=== PATIENT | male | born 1960 | race Caucasian/White ===

== ENCOUNTER 2021-01-16 08:40 | Outpatient (CLI) | payer OTHER ==
[2021-01-16] MEDS ORDERED: HYDROcodone/Acetaminophen 7.5/325 mg Tablet PO PRN ×2 (16:24)
[2021-01-16] MEDS ORDERED: Acetaminophen 325 MG TAB PO PRN (16:24)
[2021-01-16] MEDS ORDERED: Ondansetron PF 4 MG/2 ML Vial IVP PRN (16:24)
[2021-01-16] MEDS ORDERED: Dextrose 5% in Water 1,000 ML IV PRN (16:29)
[2021-01-16] MEDS ORDERED: Dextrose 50% Abboject 50 ML SYRINGE SLOW IVP PRN (16:29)
[2021-01-16] MEDS ORDERED: HumaLOG 300 UNITS/3 ML VIAL SC PRN (16:29)
[2021-01-16] MEDS ORDERED: Famotidine 20 MG TAB PO SCH (21:00)
[2021-01-16] MEDS ORDERED: Atorvastatin Calcium 40 MG TAB PO SCH (21:00)
[2021-01-16] MEDS ORDERED: Cefaclor 250 MG CAP PO SCH (21:00)
[2021-01-17] MEDS ORDERED: Aspirin 81 mg Enteric Coated Tablet PO SCH (09:00)
== END 2021-01-16 08:41 | disposition home or self-care (01) ==
LOC: CSHWCC 08:40
PROVIDERS: ATTEND Nurse Practitioner Family
DX: T87.89 Other complications of amputation stump (principal); E11.621 Type 2 diabetes mellitus with foot ulcer; L97.422 Non-pressure chronic ulcer of left heel and midfoot with fat layer exposed; E11.40 Type 2 diabetes mellitus with diabetic neuropathy, unspecified; E11.65 Type 2 diabetes mellitus with hyperglycemia; E11.43 Type 2 diabetes mellitus with diabetic autonomic (poly)neuropathy; E11.69 Type 2 diabetes mellitus with other specified complication; M86.171 Other acute osteomyelitis, right ankle and foot; R60.0 Localized edema; I25.10 Atherosclerotic heart disease of native coronary artery without angina pectoris; I82.491 Acute embolism and thrombosis of other specified deep vein of right lower extremity; J44.9 Chronic obstructive pulmonary disease, unspecified; E66.01 Morbid (severe) obesity due to excess calories; Z89.411 Acquired absence of right great toe; Z89.432 Acquired absence of left foot
CPT/HCPCS: 11042; 93306; 93880; 99213; G0463

== ENCOUNTER 2021-01-16 10:13 | Inpatient (IN) | payer OTHER, SELFPAY ==
[2021-01-16 10:53] LABS: #Basophils 0.1 10x3/uL (0.0-0.2); #Monocytes 0.4 10x3/uL (0.0-1.1); #Neutrophils 3.3 10x3/uL (1.5-8.4); %Eosinophils 0.6 % (0.0-6.0); %Lymphocytes 22.4 % (18.0-47.0); %Monocytes 8.6 % (0.0-10.0); Hemoglobin 14.6 g/dL (13.5-17.5); Mean Corpuscular HGB CONC 32.7 g/dL (32.0-36.0); Mean Corpuscular Hemoglobin 31.1 pg (27.0-33.0); Mean Corpuscular Volume 95.1 fl (81.2-95.1); Mean Platelet Volume 9.3 fl (7.4-10.4); Platelet Count 233 10x3/uL (150-450); RBC Distribution Width 14.9 % (11.5-14.5); White Blood Cell (WBC) Count 4.9 10x3/uL (3.5-10.5)
[2021-01-16 11:10] LABS: ALT (SGPT) 10 U/L (8-55); AST (SGOT) 11 U/L (5-34); Albumin 4.2 g/dL (3.5-5.0); Alkaline Phosphatase 69 U/L (40-110); Anion Gap 17 mmol/L (10-20); BUN (Urea Nitrogen) 13 mg/dL (8.4-25.7); Bilirubin, Total 0.3 mg/dL (0.2-1.2); Calc. Creatinine Clearance 0 mL/min (70-130); Calcium 9.2 mg/dL (7.8-10.44); Carbon Dioxide 26 mmol/L (22-29); Chloride 100 mmol/L (98-107); Globulin 3.6 g/dL (2.4-3.5); Glucose 426 mg/dL (70-105); Potassium 4.6 mmol/L (3.5-5.1); Protein, Total 7.8 g/dL (6.0-8.3); Sodium 138 mmol/L (136-145)
[2021-01-16 16:53] VITALS: BMI 34.0
[2021-01-16] MEDS ORDERED: FLU VACC QS2021-22(6MOS UP)/PF 60 MCG/0.5 ML SYRINGE IM ONE (18:00)
[2021-01-16] MEDS ORDERED: Acetaminophen 325 MG TAB PO PRN (18:23)
[2021-01-16] MEDS ORDERED: Dextrose 5% in Water 1,000 ML IV PRN (18:27)
[2021-01-16] MEDS ORDERED: Ondansetron PF 4 MG/2 ML Vial IVP PRN (18:27)
[2021-01-16] MEDS ORDERED: Dextrose 50% Abboject 50 ML SYRINGE SLOW IVP PRN (18:27)
[2021-01-16] MEDS: Atorvastatin Calcium 40 MG TAB PO SCH (20:27)
[2021-01-16] MEDS: HYDROcodone/Acetaminophen 7.5/325 mg Tablet PO PRN (20:27)
[2021-01-16] MEDS: Famotidine 20 MG TAB PO SCH (20:27)
[2021-01-16] MEDS ORDERED: Cefuroxime Axetil 250 MG TAB PO SCH (21:00)
[2021-01-16] MEDS ORDERED: Apixaban 5 MG TAB PO SCH (21:15)
[2021-01-16] MEDS: HumaLOG 300 UNITS/3 ML VIAL SC PRN (21:42)
[2021-01-17] MEDS: HYDROcodone/Acetaminophen 7.5/325 mg Tablet PO PRN ×4 (00:06→23:04)
[2021-01-17 06:25] LABS: #Eosinphils 0.1 10x3/uL (0.0-0.5); #Monocytes 0.6 10x3/uL (0.0-1.1); #Neutrophils 2.7 10x3/uL (1.5-8.4); %Basophils 0.8 % (0.0-2.0); %Eosinophils 1.6 % (0.0-6.0); %Monocytes 11.6 % (0.0-10.0); %Neutrophils 53.6 % (40.0-75.0); Hemoglobin 14.7 g/dL (13.5-17.5); Mean Corpuscular HGB CONC 32.5 g/dL (32.0-36.0); Mean Corpuscular Hemoglobin 31.6 pg (27.0-33.0); Mean Corpuscular Volume 97.2 fl (81.2-95.1); Platelet Count 222 10x3/uL (150-450); RBC Distribution Width 15.1 % (11.5-14.5); Red Blood Cell (RBC) Count 4.65 10x6/uL (4.32-5.72)
[2021-01-17 07:00] LABS: ALT (SGPT) 8 U/L (8-55); AST (SGOT) 11 U/L (5-34); Albumin 3.8 g/dL (3.5-5.0); Alkaline Phosphatase 66 U/L (40-110); Anion Gap 14 mmol/L (10-20); BUN (Urea Nitrogen) 12 mg/dL (8.4-25.7); Bilirubin, Total 0.6 mg/dL (0.2-1.2); Calc. Creatinine Clearance 176 mL/min (70-130); Calcium 8.8 mg/dL (7.8-10.44); Carbon Dioxide 25 mmol/L (22-29); Cardiac Risk 6.6 (Less than 4.5); Chloride 103 mmol/L (98-107); Cholesterol 178 mg/dl (< 200 Desired); Globulin 3.2 g/dL (2.4-3.5); Glucose 171 mg/dL (70-105); HDL Cholesterol 27 mg/dL (>60 Neg Risk); LDL Cholesterol, Calculated 85 mg/dL; Potassium 4.2 mmol/L (3.5-5.1); Sodium 138 mmol/L (136-145); Triglycerides 330 mg/dL (Less than 150)
[2021-01-17] MEDS: Famotidine 20 MG TAB PO SCH ×2 (08:45→20:17)
[2021-01-17] MEDS: Aspirin 81 mg Enteric Coated Tablet PO SCH (08:45)
[2021-01-17] MEDS: Apixaban 5 MG TAB PO SCH ×2 (08:45→20:17)
[2021-01-17] MEDS: Cefuroxime Axetil 250 MG TAB PO SCH ×2 (08:45→16:40)
[2021-01-17] MEDS: HumaLOG 300 UNITS/3 ML VIAL SC PRN ×2 (13:00→21:31)
[2021-01-17] MEDS: Atorvastatin Calcium 40 MG TAB PO SCH (20:17)
[2021-01-18] MEDS: HYDROcodone/Acetaminophen 7.5/325 mg Tablet PO PRN ×2 (05:32→09:50)
[2021-01-18] MEDS: HumaLOG 300 UNITS/3 ML VIAL SC PRN (05:33)
[2021-01-18] MEDS: Famotidine 20 MG TAB PO SCH (08:44)
[2021-01-18] MEDS: Apixaban 5 MG TAB PO SCH (08:44)
[2021-01-18] MEDS: Cefuroxime Axetil 250 MG TAB PO SCH (08:44)
[2021-01-18] MEDS: Aspirin 81 mg Enteric Coated Tablet PO SCH (08:44)
[2021-01-18 08:46] VITALS: BP 136/87; TEMP 98.6
== END 2021-01-18 10:39 | disposition home or self-care (01) | DRG 69 ==
LOC: CSHERS 10:13 → CSHTELE 15:50
PROVIDERS: ADMIT Internal Medicine; ATTEND Internal Medicine
DX: G45.9 Transient cerebral ischemic attack, unspecified (principal); J44.9 Chronic obstructive pulmonary disease, unspecified; I10 Essential (primary) hypertension; E78.5 Hyperlipidemia, unspecified; F17.210 Nicotine dependence, cigarettes, uncomplicated; E11.9 Type 2 diabetes mellitus without complications; I73.9 Peripheral vascular disease, unspecified; Z86.718 Personal history of other venous thrombosis and embolism; Z79.01 Long term (current) use of anticoagulants; Z89.421 Acquired absence of other right toe(s)
CPT/HCPCS: 36415; 36416; 70450; 70551; 71045; 72141; 80053; 80061; 82553; 84484; 85025; 93005; 93306; J1815

== ENCOUNTER 2021-01-23 08:11 | Outpatient (CLI) | payer OTHER | END 2021-01-23 08:12 | disposition home or self-care (01) | LOC: CSHWCC 08:11 | PROVIDERS: ATTEND Nurse Practitioner Family | DX: T87.89 Other complications of amputation stump (principal); E11.621 Type 2 diabetes mellitus with foot ulcer; L97.422 Non-pressure chronic ulcer of left heel and midfoot with fat layer exposed; E11.40 Type 2 diabetes mellitus with diabetic neuropathy, unspecified; E11.65 Type 2 diabetes mellitus with hyperglycemia; E11.43 Type 2 diabetes mellitus with diabetic autonomic (poly)neuropathy; E11.69 Type 2 diabetes mellitus with other specified complication; I25.10 Atherosclerotic heart disease of native coronary artery without angina pectoris; I82.491 Acute embolism and thrombosis of other specified deep vein of right lower extremity; M86.171 Other acute osteomyelitis, right ankle and foot; J44.9 Chronic obstructive pulmonary disease, unspecified; R60.0 Localized edema; E66.01 Morbid (severe) obesity due to excess calories; Z89.411 Acquired absence of right great toe; Z89.432 Acquired absence of left foot | CPT/HCPCS: 11042; 99213; G0463 ==

== ENCOUNTER 2021-01-30 08:25 | Outpatient (CLI) | payer OTHER | END 2021-01-30 08:26 | disposition home or self-care (01) | LOC: CSHWCC 08:25 | PROVIDERS: ATTEND Nurse Practitioner Family | DX: T87.89 Other complications of amputation stump (principal); E11.621 Type 2 diabetes mellitus with foot ulcer; L97.422 Non-pressure chronic ulcer of left heel and midfoot with fat layer exposed; E11.40 Type 2 diabetes mellitus with diabetic neuropathy, unspecified; E11.65 Type 2 diabetes mellitus with hyperglycemia; E66.01 Morbid (severe) obesity due to excess calories; G90.09 Other idiopathic peripheral autonomic neuropathy; I10 Essential (primary) hypertension; I25.10 Atherosclerotic heart disease of native coronary artery without angina pectoris; I82.491 Acute embolism and thrombosis of other specified deep vein of right lower extremity; J44.9 Chronic obstructive pulmonary disease, unspecified; M86.171 Other acute osteomyelitis, right ankle and foot; Z89.411 Acquired absence of right great toe; Z89.432 Acquired absence of left foot ==

== ENCOUNTER 2021-02-06 08:43 | Outpatient (CLI) | payer OTHER | END 2021-02-06 08:44 | disposition home or self-care (01) | LOC: CSHWCC 08:43 | PROVIDERS: ATTEND Nurse Practitioner Family | DX: T87.89 Other complications of amputation stump (principal); E11.621 Type 2 diabetes mellitus with foot ulcer; L97.422 Non-pressure chronic ulcer of left heel and midfoot with fat layer exposed; E11.40 Type 2 diabetes mellitus with diabetic neuropathy, unspecified; E11.65 Type 2 diabetes mellitus with hyperglycemia; E11.43 Type 2 diabetes mellitus with diabetic autonomic (poly)neuropathy; E11.69 Type 2 diabetes mellitus with other specified complication; M86.171 Other acute osteomyelitis, right ankle and foot; I25.10 Atherosclerotic heart disease of native coronary artery without angina pectoris; R60.0 Localized edema; I82.491 Acute embolism and thrombosis of other specified deep vein of right lower extremity; J44.9 Chronic obstructive pulmonary disease, unspecified; I10 Essential (primary) hypertension; E66.01 Morbid (severe) obesity due to excess calories; Z89.411 Acquired absence of right great toe; Z89.432 Acquired absence of left foot | CPT/HCPCS: 11042; 99213; G0463 ==

== ENCOUNTER 2021-02-13 08:22 | Outpatient (CLI) | payer OTHER | END 2021-02-13 08:23 | disposition home or self-care (01) | LOC: CSHWCC 08:22 | PROVIDERS: ATTEND Nurse Practitioner Family | DX: T87.89 Other complications of amputation stump (principal); E11.621 Type 2 diabetes mellitus with foot ulcer; R60.0 Localized edema; E11.40 Type 2 diabetes mellitus with diabetic neuropathy, unspecified; E11.65 Type 2 diabetes mellitus with hyperglycemia; E66.01 Morbid (severe) obesity due to excess calories; G90.09 Other idiopathic peripheral autonomic neuropathy; I10 Essential (primary) hypertension; I25.10 Atherosclerotic heart disease of native coronary artery without angina pectoris; I82.491 Acute embolism and thrombosis of other specified deep vein of right lower extremity; J44.9 Chronic obstructive pulmonary disease, unspecified; M86.171 Other acute osteomyelitis, right ankle and foot; Z89.411 Acquired absence of right great toe; Z89.432 Acquired absence of left foot | CPT/HCPCS: 11042; 99213; G0463 ==

== ENCOUNTER 2021-02-27 08:42 | Outpatient (CLI) | payer OTHER | END 2021-02-27 08:43 | disposition home or self-care (01) | LOC: CSHWCC 08:42 | PROVIDERS: ATTEND Nurse Practitioner Family | DX: T87.89 Other complications of amputation stump (principal); E11.621 Type 2 diabetes mellitus with foot ulcer; E11.40 Type 2 diabetes mellitus with diabetic neuropathy, unspecified; E11.65 Type 2 diabetes mellitus with hyperglycemia; L97.509 Non-pressure chronic ulcer of other part of unspecified foot with unspecified severity; E66.01 Morbid (severe) obesity due to excess calories; G90.09 Other idiopathic peripheral autonomic neuropathy; I10 Essential (primary) hypertension; I25.10 Atherosclerotic heart disease of native coronary artery without angina pectoris; I82.491 Acute embolism and thrombosis of other specified deep vein of right lower extremity; J44.9 Chronic obstructive pulmonary disease, unspecified; M86.171 Other acute osteomyelitis, right ankle and foot; R60.0 Localized edema; Z89.411 Acquired absence of right great toe; Z89.432 Acquired absence of left foot | CPT/HCPCS: 99213; G0463 ==

== ENCOUNTER 2021-03-13 08:32 | Outpatient (CLI) | payer OTHER | END 2021-03-13 08:33 | disposition home or self-care (01) | LOC: CSHWCC 08:32 | PROVIDERS: ATTEND Nurse Practitioner Family | DX: T87.89 Other complications of amputation stump (principal); E11.621 Type 2 diabetes mellitus with foot ulcer; L97.509 Non-pressure chronic ulcer of other part of unspecified foot with unspecified severity; R60.0 Localized edema; E11.40 Type 2 diabetes mellitus with diabetic neuropathy, unspecified; E11.65 Type 2 diabetes mellitus with hyperglycemia; E66.01 Morbid (severe) obesity due to excess calories; G90.01 Carotid sinus syncope; I10 Essential (primary) hypertension; I25.10 Atherosclerotic heart disease of native coronary artery without angina pectoris; I82.491 Acute embolism and thrombosis of other specified deep vein of right lower extremity; J44.9 Chronic obstructive pulmonary disease, unspecified; M86.171 Other acute osteomyelitis, right ankle and foot; Z89.411 Acquired absence of right great toe; Z89.432 Acquired absence of left foot ==

== ENCOUNTER 2021-04-03 08:31 | Outpatient (CLI) | payer OTHER | END 2021-04-03 08:32 | disposition home or self-care (01) | LOC: CSHWCC 08:31 | PROVIDERS: ATTEND Nurse Practitioner Family | DX: T87.89 Other complications of amputation stump (principal); R60.0 Localized edema; E11.621 Type 2 diabetes mellitus with foot ulcer; L97.509 Non-pressure chronic ulcer of other part of unspecified foot with unspecified severity; E11.40 Type 2 diabetes mellitus with diabetic neuropathy, unspecified; E11.65 Type 2 diabetes mellitus with hyperglycemia; E66.01 Morbid (severe) obesity due to excess calories; G90.09 Other idiopathic peripheral autonomic neuropathy; I10 Essential (primary) hypertension; I25.10 Atherosclerotic heart disease of native coronary artery without angina pectoris; I82.491 Acute embolism and thrombosis of other specified deep vein of right lower extremity; J44.9 Chronic obstructive pulmonary disease, unspecified; M86.171 Other acute osteomyelitis, right ankle and foot; Z89.411 Acquired absence of right great toe; Z89.432 Acquired absence of left foot ==

== ENCOUNTER 2021-05-08 10:16 | Outpatient (CLI) | payer OTHER | END 2021-05-08 10:17 | disposition home or self-care (01) | LOC: CSHWCC 10:16 | PROVIDERS: ATTEND Nurse Practitioner Family | DX: T87.89 Other complications of amputation stump (principal); E11.621 Type 2 diabetes mellitus with foot ulcer; L97.509 Non-pressure chronic ulcer of other part of unspecified foot with unspecified severity; E11.40 Type 2 diabetes mellitus with diabetic neuropathy, unspecified; E11.65 Type 2 diabetes mellitus with hyperglycemia; E11.43 Type 2 diabetes mellitus with diabetic autonomic (poly)neuropathy; E11.69 Type 2 diabetes mellitus with other specified complication; M86.171 Other acute osteomyelitis, right ankle and foot; I25.10 Atherosclerotic heart disease of native coronary artery without angina pectoris; I82.491 Acute embolism and thrombosis of other specified deep vein of right lower extremity; I10 Essential (primary) hypertension; J44.9 Chronic obstructive pulmonary disease, unspecified; E66.01 Morbid (severe) obesity due to excess calories; Z89.411 Acquired absence of right great toe; Z89.432 Acquired absence of left foot ==

== ENCOUNTER 2021-05-29 08:21 | Outpatient (CLI) | payer SELFPAY | END 2021-05-29 08:22 | disposition home or self-care (01) | LOC: CSHWCC 08:21 | PROVIDERS: ATTEND Nurse Practitioner Family | DX: T87.89 Other complications of amputation stump (principal); R60.0 Localized edema | CPT/HCPCS: 99213; G0463 ==

== ENCOUNTER 2022-01-02 19:32 | Inpatient (IN) | payer SELFPAY ==
[2022-01-02 20:10] LABS: #Basophils 0.1 10x3/uL (0.0-0.2); #Eosinphils 0.1 10x3/uL (0.0-0.5); #Monocytes 0.6 10x3/uL (0.0-1.1); #Neutrophils 3.9 10x3/uL (1.5-8.4); %Basophils 0.7 % (0.0-2.0); %Eosinophils 0.7 % (0.0-6.0); %Lymphocytes 32.8 % (18.0-47.0); %Monocytes 8.3 % (0.0-10.0); %Neutrophils 57.1 % (40.0-75.0); Hemoglobin 12.4 g/dL (13.5-17.5); Mean Corpuscular Hemoglobin 32.9 pg (27.0-33.0); Mean Corpuscular Volume 93.9 fl (81.2-95.1); Mean Platelet Volume 9.5 fl (7.4-10.4); Platelet Count 218 10x3/uL (150-450); Red Blood Cell (RBC) Count 3.77 10x6/uL (4.32-5.72); White Blood Cell (WBC) Count 6.8 10x3/uL (3.5-10.5)
[2022-01-02] MEDS ORDERED: Diltiazem 125 MG/25 ML ONE (20:14)
[2022-01-02 20:24] LABS: ALT (SGPT) 7 U/L (8-55); AST (SGOT) 10 U/L (5-34); Alkaline Phosphatase 45 U/L (40-110); Anion Gap 15 mmol/L (10-20); BUN (Urea Nitrogen) 12 mg/dL (8.4-25.7); Bilirubin, Total 0.2 mg/dL (0.2-1.2); Calc. Creatinine Clearance 0 mL/min (70-130); Calcium 6.5 mg/dL (7.8-10.44); Carbon Dioxide 14 mmol/L (22-29); Chloride 109 mmol/L (98-107); Estimated GFR 108; Globulin 1.9 g/dL (2.4-3.5); Glucose 123 mg/dL (70-105); Protein, Total 4.9 g/dL (6.0-8.3); Sodium 135 mmol/L (136-145)
[2022-01-02 20:30] LABS: Potassium 2.9 mmol/L (3.5-5.1)
[2022-01-02] MEDS ORDERED: Potassium Chloride 20 MEQ TAB ONE (20:51)
[2022-01-03 01:07] LABS: Troponin I Less than 0.010 ng/mL (< 0.028)
[2022-01-03 01:21] LABS: Anion Gap 17 mmol/L (10-20); BUN (Urea Nitrogen) 12 mg/dL (8.4-25.7); Calc. Creatinine Clearance 0 mL/min (70-130); Carbon Dioxide 19 mmol/L (22-29); Chloride 104 mmol/L (98-107); Estimated GFR 102; Glucose 148 mg/dL (70-105); Potassium 3.9 mmol/L (3.5-5.1); Sodium 136 mmol/L (136-145)
[2022-01-03 01:25] VITALS: BMI 30.9
[2022-01-03 01:33] LABS: Calcium 8.4 mg/dL (7.8-10.44)
[2022-01-03] MEDS ORDERED: Diltiazem 125 MG in Sodium Chloride 0.9% 100 ML IVPB SCH (02:00)
[2022-01-03] MEDS: Acetaminophen 325 MG TAB PO PRN ×2 (02:40→08:41)
[2022-01-03 04:39] LABS: #Eosinphils 0.1 10x3/uL (0.0-0.5); #Monocytes 0.4 10x3/uL (0.0-1.1); #Neutrophils 2.2 10x3/uL (1.5-8.4); %Basophils 0.9 % (0.0-2.0); %Eosinophils 1.2 % (0.0-6.0); %Monocytes 10.2 % (0.0-10.0); %Neutrophils 50.2 % (40.0-75.0); Hemoglobin 13.2 g/dL (13.5-17.5); Mean Corpuscular HGB CONC 35.3 g/dL (32.0-36.0); Mean Corpuscular Hemoglobin 33.2 pg (27.0-33.0); Mean Platelet Volume 10.2 fl (7.4-10.4); Platelet Count 203 10x3/uL (150-450); RBC Distribution Width 12.8 % (11.5-14.5); Red Blood Cell (RBC) Count 3.98 10x6/uL (4.32-5.72); White Blood Cell (WBC) Count 4.3 10x3/uL (3.5-10.5)
[2022-01-03 04:43] LABS: Troponin I Less than 0.010 ng/mL (< 0.028)
[2022-01-03] MEDS: Mometasone/Formoterol 60 PUFF AER INH SCH ×2 (07:08→18:35)
[2022-01-03] MEDS ORDERED: Apixaban 5 MG TAB PO SCH (09:45)
[2022-01-03] MEDS ORDERED: Dextrose 5% in Water 1,000 ML IV PRN (09:55)
[2022-01-03] MEDS ORDERED: Dextrose 50% Abboject 50 ML SYRINGE SLOW IVP PRN (09:55)
[2022-01-03] MEDS: HumaLOG 300 UNITS/3 ML VIAL SC PRN ×2 (12:21→17:32)
[2022-01-03] MEDS: Metoprolol Tartrate 50 MG TAB PO SCH ×2 (14:29→20:43)
[2022-01-03] MEDS: Apixaban 5 MG TAB PO SCH (20:43)
[2022-01-04] MEDS: HumaLOG 300 UNITS/3 ML VIAL SC PRN (04:52)
[2022-01-04 05:37] LABS: Troponin I Less than 0.010 ng/mL (< 0.028)
[2022-01-04] MEDS: Mometasone/Formoterol 60 PUFF AER INH SCH (07:00)
[2022-01-04] MEDS: Apixaban 5 MG TAB PO SCH (08:07)
[2022-01-04] MEDS: Metoprolol Tartrate 50 MG TAB PO SCH (08:07)
[2022-01-04] MEDS: Acetaminophen 325 MG TAB PO PRN (08:08)
[2022-01-04 08:19] VITALS: BP 148/82; TEMP 97.9
[2022-01-04] MEDS ORDERED: Empagliflozin 25 MG TAB PO SCH (09:00)
[2022-01-04] MEDS ORDERED: Lisinopril 20 MG TAB PO SCH (09:00)
== END 2022-01-04 11:30 | disposition home or self-care (01) | DRG 309 ==
LOC: CSHERS 19:32 → CSHTELE 01-03 01:01
PROVIDERS: ADMIT Family Medicine; ATTEND Family Medicine
DX: I48.91 Unspecified atrial fibrillation (principal); E87.29 Other acidosis; E87.6 Hypokalemia; I10 Essential (primary) hypertension; E78.5 Hyperlipidemia, unspecified; J44.9 Chronic obstructive pulmonary disease, unspecified; F17.210 Nicotine dependence, cigarettes, uncomplicated; E11.69 Type 2 diabetes mellitus with other specified complication; F19.90 Other psychoactive substance use, unspecified, uncomplicated; I48.92 Unspecified atrial flutter; Z20.822 Contact with and (suspected) exposure to COVID-19; Z79.01 Long term (current) use of anticoagulants; Z79.899 Other long term (current) drug therapy; Z86.711 Personal history of pulmonary embolism; Z86.718 Personal history of other venous thrombosis and embolism; Z89.411 Acquired absence of right great toe
CPT/HCPCS: 36415; 36416; 71045; 80048; 80053; 82550; 83735; 84443; 84484; 85025; 93005; 96374; 96376; J1815; J3490; U0003; U0005

== ENCOUNTER 2022-05-29 15:45 | Inpatient (IN) | payer SELFPAY ==
[2022-05-29] MEDS ORDERED: Diltiazem 125 MG/25 ML ONE (16:20)
[2022-05-29] MEDS ORDERED: Ondansetron ODT 4 MG TAB PO PRN ×2 (16:37→16:41)
[2022-05-29] MEDS ORDERED: Ondansetron PF 4 MG/2 ML Vial IVP PRN (16:37)
[2022-05-29] MEDS ORDERED: Lorazepam 2 MG/ML VIAL IM PRN (16:41)
[2022-05-29] MEDS ORDERED: Lorazepam 1 MG TAB PO PRN (16:41)
[2022-05-29] MEDS ORDERED: HumaLOG 300 UNITS/3 ML VIAL SC PRN ×2 (16:44)
[2022-05-29] MEDS ORDERED: Dextrose 50% Abboject 50 ML SYRINGE SLOW IVP PRN (16:44)
[2022-05-29] MEDS ORDERED: Dextrose 5% in Water 1,000 ML IV PRN (16:44)
[2022-05-29] MEDS ORDERED: Electrolyte Replacement Protocol 1 EACH FS SCH (16:45)
[2022-05-29] MEDS ORDERED: Diltiazem 125 MG in Sodium Chloride 0.9% 100 ML IVPB SCH (17:15)
[2022-05-29] MEDS: Lorazepam 1 MG TAB PO SCH ×2 (17:29→23:27)
[2022-05-29] MEDS ORDERED: Nicotine 14 MG PATCH TD SCH (17:30)
[2022-05-29] MEDS: Thiamine HCl 200 MG/2 ML VIAL SLOW IVP SCH (17:33)
[2022-05-29 17:50] LABS: Magnesium 1.7 mg/dL (1.6-2.6)
[2022-05-29 18:11] LABS: Anion Gap 16 mmol/L (10-20); BUN (Urea Nitrogen) 8 mg/dL (8.4-25.7); Calc. Creatinine Clearance 0 mL/min (70-130); Calcium 8.6 mg/dL (7.8-10.44); Carbon Dioxide 18 mmol/L (22-29); Chloride 104 mmol/L (98-107); Estimated GFR 102; Glucose 162 mg/dL (70-105); Potassium 4.4 mmol/L (3.5-5.1); Sodium 134 mmol/L (136-145)
[2022-05-29 18:26] VITALS: BMI 33.1
[2022-05-29] MEDS ORDERED: FLU VACC QS2022-23(6MOS UP)/PF 60 MCG/0.5 ML SYRINGE IM ONE (19:00)
[2022-05-29] MEDS ORDERED: Magnesium 2 GM/50 ML(in water) 2 GM in Premix Bag 1 BAG IVPB SCH (19:30)
[2022-05-29] MEDS: Apixaban 5 MG TAB PO SCH (20:39)
[2022-05-29] MEDS: Metoprolol Tartrate 50 MG TAB PO SCH (20:39)
[2022-05-29] MEDS: Acetaminophen 325 MG TAB PO PRN (23:30)
[2022-05-30] MEDS: Lorazepam 1 MG TAB PO SCH ×2 (05:16→10:13)
[2022-05-30 06:01] LABS: #Eosinphils 0.1 10x3/uL (0.0-0.5); #Monocytes 0.7 10x3/uL (0.0-1.1); #Neutrophils 2.9 10x3/uL (1.5-8.4); %Basophils 0.7 % (0.0-2.0); %Eosinophils 2.2 % (0.0-6.0); %Lymphocytes 30.4 % (18.0-47.0); %Monocytes 12.1 % (0.0-10.0); %Neutrophils 53.9 % (40.0-75.0); Hemoglobin 12.5 g/dL (13.5-17.5); Mean Corpuscular HGB CONC 33.2 g/dL (32.0-36.0); Mean Corpuscular Hemoglobin 32.3 pg (27.0-33.0); Mean Corpuscular Volume 97.2 fl (81.2-95.1); Mean Platelet Volume 10.3 fl (7.4-10.4); Platelet Count 228 10x3/uL (150-450); RBC Distribution Width 13.2 % (11.5-14.5); Red Blood Cell (RBC) Count 3.87 10x6/uL (4.32-5.72); White Blood Cell (WBC) Count 5.4 10x3/uL (3.5-10.5)
[2022-05-30 06:07] LABS: Anion Gap 16 mmol/L (10-20); BUN (Urea Nitrogen) 7 mg/dL (8.4-25.7); Calc. Creatinine Clearance 167 mL/min (70-130); Calcium 8.3 mg/dL (7.8-10.44); Carbon Dioxide 21 mmol/L (22-29); Chloride 100 mmol/L (98-107); Estimated GFR 101; Glucose 167 mg/dL (70-105); Magnesium 1.9 mg/dL (1.6-2.6); Potassium 3.7 mmol/L (3.5-5.1); Sodium 133 mmol/L (136-145)
[2022-05-30] MEDS ORDERED: Nicotine 14 MG PATCH TD PRN (07:51)
[2022-05-30] MEDS ORDERED: Magnesium 2 GM/50 ML(in water) 2 GM in Premix Bag 1 BAG IVPB SCH (09:00)
[2022-05-30] MEDS: Folic Acid 1 MG TAB PO SCH (10:11)
[2022-05-30] MEDS: Apixaban 5 MG TAB PO SCH (10:11)
[2022-05-30] MEDS: Metoprolol Tartrate 50 MG TAB PO SCH ×2 (10:12→20:56)
[2022-05-30] MEDS: Multivit, Therapeutic 1 TAB PO SCH (10:13)
[2022-05-30] MEDS ORDERED: Diltiazem 125 MG in Sodium Chloride 0.9% 100 ML IVPB SCH (10:15)
[2022-05-30] MEDS: Ampicillin/Sulbactam 3 GM in Sodium Chloride 0.9% 100 ML IVPB SCH ×3 (11:18→20:56)
[2022-05-30 14:10] LABS: CKMB 2.6 ng/mL (0-6.6)
[2022-05-30] MEDS ORDERED: Lorazepam 1 MG TAB PO PRN (16:41)
[2022-05-30] MEDS: Thiamine HCl 200 MG/2 ML VIAL SLOW IVP SCH (17:54)
[2022-05-30] MEDS: Enoxaparin 120 MG/0.8 ML SYRINGE SC SCH (20:56)
[2022-05-30] MEDS: Chlorhexidine Gluconate 15 ML UDCUP SSP SCH (20:56)
[2022-05-30] MEDS: Cyanocobalamin (Vitamin B-12) 1,000 MCG TAB PO SCH (20:57)
[2022-05-31] MEDS: Ampicillin/Sulbactam 3 GM in Sodium Chloride 0.9% 100 ML IVPB SCH ×4 (03:32→22:16)
[2022-05-31 04:34] LABS: #Eosinphils 0.1 10x3/uL (0.0-0.5); #Monocytes 0.5 10x3/uL (0.0-1.1); #Neutrophils 3.5 10x3/uL (1.5-8.4); %Basophils 0.6 % (0.0-2.0); %Eosinophils 1.7 % (0.0-6.0); %Lymphocytes 23.9 % (18.0-47.0); %Monocytes 8.7 % (0.0-10.0); %Neutrophils 64.7 % (40.0-75.0); Hemoglobin 12.7 g/dL (13.5-17.5); Mean Corpuscular HGB CONC 33.8 g/dL (32.0-36.0); Mean Corpuscular Hemoglobin 32.3 pg (27.0-33.0); Mean Corpuscular Volume 95.7 fl (81.2-95.1); Mean Platelet Volume 10.3 fl (7.4-10.4); Platelet Count 221 10x3/uL (150-450); RBC Distribution Width 12.9 % (11.5-14.5); Red Blood Cell (RBC) Count 3.93 10x6/uL (4.32-5.72); White Blood Cell (WBC) Count 5.4 10x3/uL (3.5-10.5)
[2022-05-31 04:50] LABS: Anion Gap 13 mmol/L (10-20); BUN (Urea Nitrogen) 7 mg/dL (8.4-25.7); Calc. Creatinine Clearance 185 mL/min (70-130); Calcium 8.4 mg/dL (7.8-10.44); Carbon Dioxide 22 mmol/L (22-29); Chloride 102 mmol/L (98-107); Estimated GFR 105; Glucose 158 mg/dL (70-105); Magnesium 1.8 mg/dL (1.6-2.6); Potassium 4.2 mmol/L (3.5-5.1); Sodium 133 mmol/L (136-145)
[2022-05-31] MEDS ORDERED: Magnesium 2 GM/50 ML(in water) 2 GM in Premix Bag 1 BAG IVPB SCH (08:00)
[2022-05-31] MEDS ORDERED: Multivit, Therapeutic 1 TAB PO SCH (09:00)
[2022-05-31] MEDS: Enoxaparin 120 MG/0.8 ML SYRINGE SC SCH ×2 (10:09→22:16)
[2022-05-31] MEDS: Multivit, Therapeutic 1 TAB PO SCH (10:09)
[2022-05-31] MEDS: Folic Acid 1 MG TAB PO SCH (10:09)
[2022-05-31] MEDS: Metoprolol Tartrate 50 MG TAB PO SCH ×3 (10:40→22:15)
[2022-05-31] MEDS: Chlorhexidine Gluconate 15 ML UDCUP SSP SCH ×2 (10:40→22:16)
[2022-05-31] MEDS ORDERED: Losartan 25 MG TAB PO SCH (11:00)
[2022-05-31] MEDS: Thiamine HCl 200 MG/2 ML VIAL SLOW IVP SCH (15:37)
[2022-05-31] MEDS ORDERED: Lorazepam 1 MG TAB PO PRN (16:41)
[2022-05-31] MEDS ORDERED: Lorazepam 0.5 MG TAB PO SCH (16:45)
[2022-05-31 17:20] LABS: SARS-CoV-2 NAA Rapid Test Not Detected (NotDetected)
[2022-05-31] MEDS ORDERED: Ampicillin/Sulbactam 3 GM VIAL ONE ×2 (22:10)
[2022-05-31] MEDS: Cyanocobalamin (Vitamin B-12) 1,000 MCG TAB PO SCH (22:15)
[2022-06-01] MEDS: Ampicillin/Sulbactam 3 GM in Sodium Chloride 0.9% 100 ML IVPB SCH ×2 (04:13→13:07)
[2022-06-01] MEDS: Acetaminophen 325 MG TAB PO PRN (04:24)
[2022-06-01 04:47] LABS: #Eosinphils 0.1 10x3/uL (0.0-0.5); #Monocytes 0.5 10x3/uL (0.0-1.1); #Neutrophils 3.6 10x3/uL (1.5-8.4); %Basophils 0.6 % (0.0-2.0); %Eosinophils 1.5 % (0.0-6.0); %Lymphocytes 21.6 % (18.0-47.0); %Monocytes 8.6 % (0.0-10.0); Hemoglobin 12.6 g/dL (13.5-17.5); Mean Corpuscular HGB CONC 34.2 g/dL (32.0-36.0); Mean Corpuscular Volume 96.3 fl (81.2-95.1); Mean Platelet Volume 10.4 fl (7.4-10.4); Platelet Count 221 10x3/uL (150-450); Red Blood Cell (RBC) Count 3.82 10x6/uL (4.32-5.72); White Blood Cell (WBC) Count 5.4 10x3/uL (3.5-10.5)
[2022-06-01 05:02] LABS: Anion Gap 14 mmol/L (10-20); BUN (Urea Nitrogen) 7 mg/dL (8.4-25.7); Calc. Creatinine Clearance 176 mL/min (70-130); Calcium 8.6 mg/dL (7.8-10.44); Carbon Dioxide 23 mmol/L (22-29); Chloride 101 mmol/L (98-107); Estimated GFR 103; Glucose 154 mg/dL (70-105); Potassium 3.9 mmol/L (3.5-5.1); Sodium 134 mmol/L (136-145)
[2022-06-01] MEDS ORDERED: Communication Order-Pharmacy FS SCH (08:00)
[2022-06-01] MEDS ORDERED: Diazepam 5 MG TAB PO SCH (08:00)
[2022-06-01] MEDS ORDERED: Nitroglycerin 50 MG/250 ML BOT 250 ML ONE (08:53)
[2022-06-01] MEDS ORDERED: Lidocaine 1% MPF 2 ML VIAL ONE (08:53)
[2022-06-01] MEDS ORDERED: Lidocaine 1% (PF) 30 ML VIAL ONE (08:54)
[2022-06-01] MEDS ORDERED: Heparin 10,000 UNITS/ 10 ML VIAL ONE (08:57)
[2022-06-01] MEDS ORDERED: Losartan 25 MG TAB PO SCH (09:00)
[2022-06-01] MEDS ORDERED: Adenosine 6 MG/2 ML VIAL ONE (09:02)
[2022-06-01] MEDS ORDERED: Verapamil 5 MG/2 ML VIAL ONE (09:02)
[2022-06-01] MEDS ORDERED: Bivalirudin 250 MG VIAL ONE (09:02)
[2022-06-01] MEDS ORDERED: Sodium Chloride 0.9% 1,000 ML ONE (09:03)
[2022-06-01] MEDS ORDERED: Fentanyl 100 MCG/2 ML VIAL ONE (09:18)
[2022-06-01] MEDS ORDERED: Midazolam HCl 2 mg/2 ml Vial ONE (09:18)
[2022-06-01] MEDS ORDERED: TICAGRELOR 90 MG TABLET ONE (09:50)
[2022-06-01] MEDS ORDERED: Iopamidol 300 61% 100 ML VIAL FS ONE (09:51)
[2022-06-01] MEDS ORDERED: Sodium Chloride 0.9% 1,000 ML IV SCH (10:45)
[2022-06-01] MEDS: Metoprolol Tartrate 50 MG TAB PO SCH ×2 (13:02→13:03)
[2022-06-01 16:16] VITALS: BP 159/92; TEMP 97.8
[2022-06-01] MEDS ORDERED: Lorazepam 0.5 MG TAB PO PRN (16:41)
[2022-06-01] MEDS ORDERED: Thiamine 100 MG TAB PO SCH (16:45)
[2022-06-01] MEDS ORDERED: Apixaban 5 MG TAB PO SCH (21:00)
[2022-06-02] MEDS ORDERED: Clopidogrel Bisulfate 75 MG TAB PO SCH (09:00)
== END 2022-06-01 16:05 | disposition home or self-care (01) | DRG 246 ==
LOC: CSHERS 15:45 → CSHTELE 16:57 → OBSVTOIN 05-30 07:51
PROVIDERS: ADMIT Family Medicine; ATTEND Family Medicine
PROC: 0J9D0ZZ Drainage of Right Upper Arm Subcutaneous Tissue and Fascia, Open Approach (ICD-10-PCS; principal; 2022-05-30)
PROC: 027135Z Dilation of Coronary Artery, Two Arteries with Two Drug-eluting Intraluminal Devices, Percutaneous Approach (ICD-10-PCS; 2022-06-01)
PROC: 4A023N7 Measurement of Cardiac Sampling and Pressure, Left Heart, Percutaneous Approach (ICD-10-PCS; 2022-06-01)
PROC: B2111ZZ Fluoroscopy of Multiple Coronary Arteries using Low Osmolar Contrast (ICD-10-PCS; 2022-06-01)
PROC: B2151ZZ Fluoroscopy of Left Heart using Low Osmolar Contrast (ICD-10-PCS; 2022-06-01)
DX: I48.92 Unspecified atrial flutter (principal); I21.A1 Myocardial infarction type 2; E87.1 Hypo-osmolality and hyponatremia; I50.30 Unspecified diastolic (congestive) heart failure; L02.413 Cutaneous abscess of right upper limb; Z20.822 Contact with and (suspected) exposure to COVID-19; E11.9 Type 2 diabetes mellitus without complications; J44.9 Chronic obstructive pulmonary disease, unspecified; F17.210 Nicotine dependence, cigarettes, uncomplicated; I11.0 Hypertensive heart disease with heart failure; E78.2 Mixed hyperlipidemia; E87.6 Hypokalemia; E83.42 Hypomagnesemia; F10.20 Alcohol dependence, uncomplicated; F12.10 Cannabis abuse, uncomplicated; Z71.6 Tobacco abuse counseling; Z86.711 Personal history of pulmonary embolism; Z86.718 Personal history of other venous thrombosis and embolism; Z79.01 Long term (current) use of anticoagulants; Z79.899 Other long term (current) drug therapy; Z89.431 Acquired absence of right foot; Z80.9 Family history of malignant neoplasm, unspecified; Z71.51 Drug abuse counseling and surveillance of drug abuser; I48.0 Paroxysmal atrial fibrillation; I25.10 Atherosclerotic heart disease of native coronary artery without angina pectoris
CPT/HCPCS: 36415; 36416; 80048; 82553; 83735; 84484; 85025; 92928; 93005; 93010; 93306; 93458; 94760; 96365; 96366; 96375; 96376; 97139; 99152; 99153; C1769; C1874; C1887; C1894; C9600; G0378; J0153; J0295; J0583; J1644; J1650; J1815; J2001; J2250; J3010; J3411; J3475; J3490; J7050; Q9967; U0002

== ENCOUNTER → 2022-09-21 | Outpatient (CLI) | payer OTHER, SELFPAY | LOC: CSHWCC 11:00 | PROVIDERS: ATTEND Nurse Practitioner Family | DX: S91.102D Unspecified open wound of left great toe without damage to nail, subsequent encounter (principal); L89.896 Pressure-induced deep tissue damage of other site | CPT/HCPCS: 97597; 99213; G0463 ==

== ENCOUNTER 2022-09-24 07:54 | Outpatient (CLI) | payer SELFPAY | END 2022-09-24 07:55 | disposition home or self-care (01) | LOC: CSHWCC 07:54 | PROVIDERS: ATTEND Nurse Practitioner Family | DX: S91.102D Unspecified open wound of left great toe without damage to nail, subsequent encounter (principal); L89.896 Pressure-induced deep tissue damage of other site | CPT/HCPCS: 97605 ==

== ENCOUNTER 2022-09-25 10:39 | Outpatient (CLI) | payer SELFPAY | END 2022-09-25 10:40 | disposition home or self-care (01) | LOC: CSHWCC 10:39 | PROVIDERS: ATTEND Nurse Practitioner Family | DX: L89.896 Pressure-induced deep tissue damage of other site (principal); S91.102D Unspecified open wound of left great toe without damage to nail, subsequent encounter; Z89.422 Acquired absence of other left toe(s) | CPT/HCPCS: 97605 ==

== ENCOUNTER 2022-09-28 09:43 | Outpatient (CLI) | payer SELFPAY | END 2022-09-28 09:44 | disposition home or self-care (01) | LOC: CSHWCC 09:43 | PROVIDERS: ATTEND Nurse Practitioner Family | DX: S91.102D Unspecified open wound of left great toe without damage to nail, subsequent encounter (principal); L89.896 Pressure-induced deep tissue damage of other site | CPT/HCPCS: 97605 ==

== ENCOUNTER 2022-10-08 08:01 | Outpatient (CLI) | payer SELFPAY | END 2022-10-08 08:02 | disposition home or self-care (01) | LOC: CSHWCC 08:01 | PROVIDERS: ATTEND Nurse Practitioner Family | DX: L89.892 Pressure ulcer of other site, stage 2 (principal); S91.102D Unspecified open wound of left great toe without damage to nail, subsequent encounter | CPT/HCPCS: 97597 ==

== ENCOUNTER 2022-10-15 08:03 | Outpatient (CLI) | payer OTHER, SELFPAY | END 2022-10-15 08:04 | disposition home or self-care (01) | LOC: CSHWCC 08:03 | PROVIDERS: ATTEND Nurse Practitioner Family | DX: L89.892 Pressure ulcer of other site, stage 2 (principal); S91.102D Unspecified open wound of left great toe without damage to nail, subsequent encounter | CPT/HCPCS: 11043 ==

== ENCOUNTER 2022-10-22 08:03 | Outpatient (CLI) | payer SELFPAY | END 2022-10-22 08:04 | disposition home or self-care (01) | LOC: CSHWCC 08:03 | PROVIDERS: ATTEND Nurse Practitioner Family | DX: S91.102D Unspecified open wound of left great toe without damage to nail, subsequent encounter (principal); L89.892 Pressure ulcer of other site, stage 2 ==

== ENCOUNTER 2022-10-29 08:03 | Outpatient (CLI) | payer OTHER | END 2022-10-29 08:04 | disposition home or self-care (01) | LOC: CSHWCC 08:03 | PROVIDERS: ATTEND Nurse Practitioner Family | DX: S91.102D Unspecified open wound of left great toe without damage to nail, subsequent encounter (principal); L89.892 Pressure ulcer of other site, stage 2 ==

== ENCOUNTER 2022-11-05 08:10 | Outpatient (CLI) | payer OTHER | END 2022-11-05 08:11 | disposition home or self-care (01) | LOC: CSHWCC 08:10 | PROVIDERS: ATTEND Nurse Practitioner Family | DX: L89.892 Pressure ulcer of other site, stage 2 (principal); S91.102D Unspecified open wound of left great toe without damage to nail, subsequent encounter | CPT/HCPCS: 11044 ==

== ENCOUNTER 2022-11-12 08:03 | Outpatient (CLI) | payer OTHER | END 2022-11-12 08:04 | disposition home or self-care (01) | LOC: CSHWCC 08:03 | PROVIDERS: ATTEND Nurse Practitioner Family | DX: S91.102D Unspecified open wound of left great toe without damage to nail, subsequent encounter (principal); L89.892 Pressure ulcer of other site, stage 2 | CPT/HCPCS: 97605 ==

== ENCOUNTER 2022-11-16 09:29 | Outpatient (CLI) | payer OTHER | END 2022-11-16 09:30 | disposition home or self-care (01) | LOC: CSHWCC 09:29 | PROVIDERS: ATTEND Nurse Practitioner Family | DX: S91.102D Unspecified open wound of left great toe without damage to nail, subsequent encounter (principal); L89.892 Pressure ulcer of other site, stage 2 | CPT/HCPCS: 11043; 97605 ==

== ENCOUNTER 2022-11-19 08:06 | Outpatient (CLI) | payer OTHER | END 2022-11-19 08:07 | disposition home or self-care (01) | LOC: CSHWCC 08:06 | PROVIDERS: ATTEND Nurse Practitioner Family | DX: S91.102D Unspecified open wound of left great toe without damage to nail, subsequent encounter (principal) | CPT/HCPCS: 97605 ==

== ENCOUNTER 2022-11-23 08:06 | Outpatient (CLI) | payer OTHER | END 2022-11-23 08:07 | disposition home or self-care (01) | LOC: CSHWCC 08:06 | PROVIDERS: ATTEND Nurse Practitioner Family | DX: S91.102D Unspecified open wound of left great toe without damage to nail, subsequent encounter (principal); L89.892 Pressure ulcer of other site, stage 2 | CPT/HCPCS: 97605 ==

== ENCOUNTER 2022-11-26 08:20 | Outpatient (CLI) | payer OTHER | END 2022-11-26 08:21 | disposition home or self-care (01) | LOC: CSHWCC 08:20 | PROVIDERS: ATTEND Nurse Practitioner Family | DX: S91.102D Unspecified open wound of left great toe without damage to nail, subsequent encounter (principal); L89.892 Pressure ulcer of other site, stage 2 | CPT/HCPCS: 11044; 97605; 99213; G0463 ==

== ENCOUNTER 2022-12-01 08:02 | Outpatient (CLI) | payer OTHER | END 2022-12-01 08:03 | disposition home or self-care (01) | LOC: CSHWCC 08:02 | PROVIDERS: ATTEND Nurse Practitioner Family | DX: S91.102D Unspecified open wound of left great toe without damage to nail, subsequent encounter (principal); L89.892 Pressure ulcer of other site, stage 2 | CPT/HCPCS: 97605 ==

== ENCOUNTER 2022-12-04 08:12 | Outpatient (CLI) | payer OTHER | END 2022-12-04 08:13 | disposition home or self-care (01) | LOC: CSHWCC 08:12 | PROVIDERS: ATTEND Nurse Practitioner Family | DX: L89.892 Pressure ulcer of other site, stage 2 (principal); S91.102D Unspecified open wound of left great toe without damage to nail, subsequent encounter | CPT/HCPCS: 97605 ==

== ENCOUNTER 2022-12-07 08:12 | Outpatient (CLI) | payer OTHER | END 2022-12-07 08:13 | disposition home or self-care (01) | LOC: CSHWCC 08:12 | PROVIDERS: ATTEND Nurse Practitioner Family | DX: L89.892 Pressure ulcer of other site, stage 2 (principal); S91.102D Unspecified open wound of left great toe without damage to nail, subsequent encounter | CPT/HCPCS: 11043; 97605 ==

== ENCOUNTER 2022-12-14 08:08 | Outpatient (CLI) | payer OTHER | END 2022-12-14 08:09 | disposition home or self-care (01) | LOC: CSHWCC 08:08 | PROVIDERS: ATTEND Nurse Practitioner Family | DX: S91.102D Unspecified open wound of left great toe without damage to nail, subsequent encounter (principal); L89.892 Pressure ulcer of other site, stage 2 | CPT/HCPCS: 97597 ==

== ENCOUNTER 2022-12-30 08:36 | Inpatient (IN) | payer OTHER ==
[2022-12-30 09:24] LABS: #Basophils 0.1 10x3/uL (0.0-0.2); #Eosinphils 0.1 10x3/uL (0.0-0.5); #Monocytes 0.5 10x3/uL (0.0-1.1); #Neutrophils 5.1 10x3/uL (1.5-8.4); %Lymphocytes 20.4 % (18.0-47.0); %Neutrophils 69.6 % (40.0-75.0); Hematocrit 46.3 % (38.8-50.0); Hemoglobin 15.7 g/dL (13.5-17.5); Mean Corpuscular HGB CONC 33.9 g/dL (32.0-36.0); Mean Corpuscular Hemoglobin 31.5 pg (27.0-33.0); Mean Corpuscular Volume 92.8 fl (81.2-95.1); Mean Platelet Volume 9.4 fl (7.4-10.4); Platelet Count 478 10x3/uL (150-450); RBC Distribution Width 13.1 % (11.5-14.5); Red Blood Cell (RBC) Count 4.99 10x6/uL (4.32-5.72); White Blood Cell (WBC) Count 7.3 10x3/uL (3.5-10.5)
[2022-12-30 09:46] LABS: CRP (Inflammatory) 1.05 mg/dL (= or < 0.5)
[2022-12-30 09:49] LABS: ALT (SGPT) 21 U/L (8-55); AST (SGOT) 21 U/L (5-34); Albumin 4.3 g/dL (3.4-4.8); Alkaline Phosphatase 99 U/L (40-110); Anion Gap 18 mmol/L (10-20); BUN (Urea Nitrogen) 8 mg/dL (8.4-25.7); Bilirubin, Total 0.6 mg/dL (0.2-1.2); Calc. Creatinine Clearance 0 mL/min (70-130); Calcium 9.3 mg/dL (7.8-10.44); Carbon Dioxide 25 mmol/L (23-31); Chloride 99 mmol/L (98-107); Estimated GFR 99; Glucose 209 mg/dL (80-115); Potassium 4.8 mmol/L (3.5-5.1); Protein, Total 8.3 g/dL (5.8-8.1); Sodium 137 mmol/L (136-145)
[2022-12-30] MEDS ORDERED: Meropenem 1 GM VIAL ONE (11:16)
[2022-12-30] MEDS ORDERED: Meropenem 2 GM, Admixture Fee 1 EACH in Sodium Chloride 0.9% 100 ML IVPB SCH (11:45)
[2022-12-30] MEDS ORDERED: HYDROcodone/Acetaminophen 5/325 mg Tablet PO PRN ×2 (19:31)
[2022-12-30] MEDS ORDERED: Ondansetron ODT 4 MG TAB PO PRN (19:31)
[2022-12-30] MEDS ORDERED: Ondansetron PF 4 MG/2 ML Vial IVP PRN (19:31)
[2022-12-30] MEDS ORDERED: Acetaminophen 325 MG TAB PO PRN (19:31)
[2022-12-30] MEDS ORDERED: Senokot S 8.6-50 MG TAB PO PRN (19:31)
[2022-12-30 19:37] VITALS: BMI 29.8
[2022-12-30] MEDS ORDERED: Ipratropium/Albuterol 3 ML NEB NEB PRN (19:41)
[2022-12-30] MEDS ORDERED: Insulin Regular 300 UNITS/3 ML VIAL SC PRN (19:42)
[2022-12-30] MEDS ORDERED: Dextrose 50% Abboject 50 ML SYRINGE SLOW IVP PRN (19:42)
[2022-12-30] MEDS ORDERED: Glucagon 1 MG/ML KIT IM PRN (19:42)
[2022-12-30] MEDS ORDERED: Dextrose 5% in Water 1,000 ML IV PRN (19:42)
[2022-12-30] MEDS: HYDROcodone/Acetaminophen 10/325 mg Tablet PO PRN (20:58)
[2022-12-30] MEDS: Atorvastatin Calcium 40 MG TAB PO SCH (20:59)
[2022-12-30] MEDS: Amiodarone 200 MG TAB PO SCH (20:59)
[2022-12-30] MEDS: Metoprolol Tartrate 50 MG TAB PO SCH (20:59)
[2022-12-30] MEDS: Apixaban 5 MG TAB PO SCH (20:59)
[2022-12-30] MEDS: Meropenem 1 GM in Sodium Chloride 0.9% 100 ML IVPB SCH (21:00)
[2022-12-31] MEDS: HYDROcodone/Acetaminophen 10/325 mg Tablet PO PRN ×3 (02:59→21:57)
[2022-12-31] MEDS: Meropenem 1 GM in Sodium Chloride 0.9% 100 ML IVPB SCH ×3 (03:00→21:55)
[2022-12-31 05:24] LABS: #Basophils 0.1 10x3/uL (0.0-0.2); #Eosinphils 0.1 10x3/uL (0.0-0.5); #Monocytes 0.5 10x3/uL (0.0-1.1); #Neutrophils 3.7 10x3/uL (1.5-8.4); %Basophils 1.1 % (0.0-2.0); %Eosinophils 1.6 % (0.0-6.0); %Monocytes 9.1 % (0.0-10.0); %Neutrophils 65.7 % (40.0-75.0); Hematocrit 39.9 % (38.8-50.0); Hemoglobin 13.2 g/dL (13.5-17.5); Mean Corpuscular HGB CONC 33.1 g/dL (32.0-36.0); Mean Corpuscular Volume 93.7 fl (81.2-95.1); Mean Platelet Volume 9.4 fl (7.4-10.4); Platelet Count 355 10x3/uL (150-450); RBC Distribution Width 13.2 % (11.5-14.5); Red Blood Cell (RBC) Count 4.26 10x6/uL (4.32-5.72); White Blood Cell (WBC) Count 5.6 10x3/uL (3.5-10.5)
[2022-12-31 05:40] LABS: Anion Gap 14 mmol/L (10-20); BUN (Urea Nitrogen) 10 mg/dL (8.4-25.7); Calc. Creatinine Clearance 174 mL/min (70-130); Calcium 8.5 mg/dL (7.8-10.44); Carbon Dioxide 24 mmol/L (23-31); Chloride 103 mmol/L (98-107); Estimated GFR 105; Glucose 111 mg/dL (80-115); Potassium 4.2 mmol/L (3.5-5.1); Sodium 137 mmol/L (136-145)
[2022-12-31] MEDS ORDERED: Aspirin Chewable 81 MG TAB PO SCH (09:00)
[2022-12-31] MEDS: Empagliflozin 25 MG TAB PO SCH (09:01)
[2022-12-31] MEDS: Apixaban 5 MG TAB PO SCH ×2 (09:01→21:55)
[2022-12-31] MEDS: Clopidogrel Bisulfate 75 MG TAB PO SCH (09:01)
[2022-12-31] MEDS: Metoprolol Tartrate 50 MG TAB PO SCH ×2 (09:01→21:54)
[2022-12-31] MEDS: Amiodarone 200 MG TAB PO SCH ×2 (09:01→21:55)
[2022-12-31] MEDS ORDERED: Magnevist 469MG/ML 20 ML VIAL ONE (10:14)
[2022-12-31] MEDS: Nicotine 21 MG PATCH TD SCH (12:30)
[2022-12-31] MEDS: Insulin Regular 300 UNITS/3 ML VIAL SC PRN (12:32)
[2022-12-31 13:09] LABS: Hemoglobin A1c 6.7 % (4.0-6.0)
[2022-12-31] MEDS: Atorvastatin Calcium 40 MG TAB PO SCH (21:55)
[2023-01-01] MEDS: HYDROcodone/Acetaminophen 10/325 mg Tablet PO PRN ×4 (04:25→21:11)
[2023-01-01] MEDS: Meropenem 1 GM in Sodium Chloride 0.9% 100 ML IVPB SCH ×3 (04:26→21:10)
[2023-01-01 05:32] LABS: #Eosinphils 0.1 10x3/uL (0.0-0.5); #Monocytes 0.4 10x3/uL (0.0-1.1); #Neutrophils 3.3 10x3/uL (1.5-8.4); %Basophils 0.8 % (0.0-2.0); %Eosinophils 1.6 % (0.0-6.0); %Lymphocytes 22.7 % (18.0-47.0); %Monocytes 8.2 % (0.0-10.0); %Neutrophils 66.3 % (40.0-75.0); Hematocrit 40.1 % (38.8-50.0); Hemoglobin 13.2 g/dL (13.5-17.5); Mean Corpuscular HGB CONC 32.9 g/dL (32.0-36.0); Mean Corpuscular Hemoglobin 30.6 pg (27.0-33.0); Platelet Count 344 10x3/uL (150-450); Red Blood Cell (RBC) Count 4.31 10x6/uL (4.32-5.72)
[2023-01-01 05:39] LABS: Anion Gap 13 mmol/L (10-20); BUN (Urea Nitrogen) 12 mg/dL (8.4-25.7); Calc. Creatinine Clearance 179 mL/min (70-130); Calcium 8.9 mg/dL (7.8-10.44); Carbon Dioxide 23 mmol/L (23-31); Chloride 99 mmol/L (98-107); Estimated GFR 106; Glucose 137 mg/dL (80-115); Potassium 4.1 mmol/L (3.5-5.1); Sodium 131 mmol/L (136-145)
[2023-01-01] MEDS: Clopidogrel Bisulfate 75 MG TAB PO SCH (08:39)
[2023-01-01] MEDS: Empagliflozin 25 MG TAB PO SCH (08:39)
[2023-01-01] MEDS: Apixaban 5 MG TAB PO SCH ×2 (08:39→21:11)
[2023-01-01] MEDS: Amiodarone 200 MG TAB PO SCH ×2 (08:39→21:11)
[2023-01-01] MEDS: Metoprolol Tartrate 50 MG TAB PO SCH ×2 (08:39→21:11)
[2023-01-01] MEDS: Nicotine 21 MG PATCH TD SCH (08:40)
[2023-01-01] MEDS: Insulin Regular 300 UNITS/3 ML VIAL SC PRN (12:31)
[2023-01-01] MEDS: Atorvastatin Calcium 40 MG TAB PO SCH (21:11)
[2023-01-02] MEDS: HYDROcodone/Acetaminophen 10/325 mg Tablet PO PRN ×3 (05:45→18:27)
[2023-01-02] MEDS: Meropenem 1 GM in Sodium Chloride 0.9% 100 ML IVPB SCH ×3 (05:47→22:00)
[2023-01-02 05:58] LABS: #Basophils 0.1 10x3/uL (0.0-0.2); #Eosinphils 0.1 10x3/uL (0.0-0.5); #Monocytes 0.4 10x3/uL (0.0-1.1); #Neutrophils 3.8 10x3/uL (1.5-8.4); %Basophils 1.3 % (0.0-2.0); %Eosinophils 1.3 % (0.0-6.0); %Lymphocytes 19.7 % (18.0-47.0); %Monocytes 7.9 % (0.0-10.0); %Neutrophils 69.4 % (40.0-75.0); Hemoglobin 13.3 g/dL (13.5-17.5); Mean Corpuscular HGB CONC 33.3 g/dL (32.0-36.0); Mean Corpuscular Hemoglobin 30.6 pg (27.0-33.0); Mean Corpuscular Volume 92.2 fl (81.2-95.1); Platelet Count 286 10x3/uL (150-450); RBC Distribution Width 12.9 % (11.5-14.5); Red Blood Cell (RBC) Count 4.34 10x6/uL (4.32-5.72); White Blood Cell (WBC) Count 5.4 10x3/uL (3.5-10.5)
[2023-01-02 06:02] LABS: Anion Gap 15 mmol/L (10-20); BUN (Urea Nitrogen) 11 mg/dL (8.4-25.7); Calc. Creatinine Clearance 165 mL/min (70-130); Calcium 9.4 mg/dL (7.8-10.44); Carbon Dioxide 23 mmol/L (23-31); Chloride 100 mmol/L (98-107); Estimated GFR 103; Glucose 121 mg/dL (80-115); Potassium 4.2 mmol/L (3.5-5.1); Sodium 134 mmol/L (136-145)
[2023-01-02] MEDS: Metoprolol Tartrate 50 MG TAB PO SCH ×2 (08:26→22:00)
[2023-01-02] MEDS: Apixaban 5 MG TAB PO SCH ×2 (08:27→22:00)
[2023-01-02] MEDS: Clopidogrel Bisulfate 75 MG TAB PO SCH (08:27)
[2023-01-02] MEDS: Empagliflozin 25 MG TAB PO SCH (08:27)
[2023-01-02] MEDS: Amiodarone 200 MG TAB PO SCH ×2 (08:27→22:00)
[2023-01-02] MEDS: Nicotine 21 MG PATCH TD SCH (12:40)
[2023-01-02] MEDS: Insulin Regular 300 UNITS/3 ML VIAL SC PRN (18:02)
[2023-01-02] MEDS: Atorvastatin Calcium 40 MG TAB PO SCH (22:00)
[2023-01-03] MEDS: HYDROcodone/Acetaminophen 10/325 mg Tablet PO PRN ×4 (01:59→22:18)
[2023-01-03] MEDS: Meropenem 1 GM in Sodium Chloride 0.9% 100 ML IVPB SCH ×3 (05:21→20:31)
[2023-01-03 05:56] LABS: #Basophils 0.1 10x3/uL (0.0-0.2); #Eosinphils 0.1 10x3/uL (0.0-0.5); #Monocytes 0.6 10x3/uL (0.0-1.1); #Neutrophils 4.1 10x3/uL (1.5-8.4); %Eosinophils 1.5 % (0.0-6.0); %Lymphocytes 19.7 % (18.0-47.0); %Monocytes 9.3 % (0.0-10.0); %Neutrophils 68.2 % (40.0-75.0); Hematocrit 40.8 % (38.8-50.0); Hemoglobin 13.5 g/dL (13.5-17.5); Mean Corpuscular HGB CONC 33.1 g/dL (32.0-36.0); Mean Corpuscular Hemoglobin 30.9 pg (27.0-33.0); Mean Corpuscular Volume 93.4 fl (81.2-95.1); Platelet Count 300 10x3/uL (150-450); Red Blood Cell (RBC) Count 4.37 10x6/uL (4.32-5.72)
[2023-01-03 06:08] LABS: Anion Gap 15 mmol/L (10-20); BUN (Urea Nitrogen) 12 mg/dL (8.4-25.7); Calc. Creatinine Clearance 167 mL/min (70-130); Calcium 9.6 mg/dL (7.8-10.44); Carbon Dioxide 22 mmol/L (23-31); Chloride 100 mmol/L (98-107); Estimated GFR 104; Glucose 113 mg/dL (80-115); Potassium 4.2 mmol/L (3.5-5.1); Sodium 133 mmol/L (136-145)
[2023-01-03] MEDS: Metoprolol Tartrate 50 MG TAB PO SCH ×2 (09:53→20:32)
[2023-01-03] MEDS: Apixaban 5 MG TAB PO SCH ×2 (09:53→20:32)
[2023-01-03] MEDS: Empagliflozin 25 MG TAB PO SCH (09:56)
[2023-01-03] MEDS: Clopidogrel Bisulfate 75 MG TAB PO SCH (09:56)
[2023-01-03] MEDS: Amiodarone 200 MG TAB PO SCH ×2 (09:56→20:32)
[2023-01-03] MEDS: Nicotine 21 MG PATCH TD SCH (09:56)
[2023-01-03] MEDS ORDERED: Phenol 177 ML BOT PO PRN (10:40)
[2023-01-03] MEDS: Atorvastatin Calcium 40 MG TAB PO SCH (20:32)
[2023-01-04] MEDS: Meropenem 1 GM in Sodium Chloride 0.9% 100 ML IVPB SCH (03:47)
[2023-01-04] MEDS: HYDROcodone/Acetaminophen 10/325 mg Tablet PO PRN ×2 (03:59→09:48)
[2023-01-04] MEDS: Nicotine 21 MG PATCH TD SCH (09:40)
[2023-01-04] MEDS: Metoprolol Tartrate 50 MG TAB PO SCH (09:40)
[2023-01-04] MEDS: Clopidogrel Bisulfate 75 MG TAB PO SCH (09:40)
[2023-01-04] MEDS: Amiodarone 200 MG TAB PO SCH (09:40)
[2023-01-04] MEDS: Apixaban 5 MG TAB PO SCH (09:40)
[2023-01-04] MEDS: Empagliflozin 25 MG TAB PO SCH (09:40)
[2023-01-04] MEDS ORDERED: Ertapenem 1 GM in Sodium Chloride 0.9% 100 ML IVPB SCH (10:00)
[2023-01-04] MEDS ORDERED: Lidocaine 1% PF 5 ML VIAL ONE (13:12)
[2023-01-04] MEDS ORDERED: Sodium Bicarbonate 2.5 MEQ/5 ML VIAL ONE (13:12)
[2023-01-04 16:59] VITALS: BP 140/74; TEMP 97.8
== END 2023-01-04 16:59 | disposition home or self-care (01) | DRG 638 ==
LOC: CSHERS 08:36 → CSHTELE 14:10
PROVIDERS: ADMIT Hospitalist; ATTEND Internal Medicine
PROC: 02HV33Z Insertion of Infusion Device into Superior Vena Cava, Percutaneous Approach (ICD-10-PCS; principal; 2023-01-04)
PROC: B5181ZA Fluoroscopy of Superior Vena Cava using Low Osmolar Contrast, Guidance (ICD-10-PCS; 2023-01-04)
PROC: B548ZZA Ultrasonography of Superior Vena Cava, Guidance (ICD-10-PCS; 2023-01-04)
DX: E11.69 Type 2 diabetes mellitus with other specified complication (principal); I48.20 Chronic atrial fibrillation, unspecified; I48.92 Unspecified atrial flutter; Z16.24 Resistance to multiple antibiotics; M86.8X7 Other osteomyelitis, ankle and foot; L02.612 Cutaneous abscess of left foot; E78.00 Pure hypercholesterolemia, unspecified; E66.9 Obesity, unspecified; I10 Essential (primary) hypertension; J44.9 Chronic obstructive pulmonary disease, unspecified; I25.10 Atherosclerotic heart disease of native coronary artery without angina pectoris; E11.51 Type 2 diabetes mellitus with diabetic peripheral angiopathy without gangrene; F17.210 Nicotine dependence, cigarettes, uncomplicated; E11.42 Type 2 diabetes mellitus with diabetic polyneuropathy; E11.628 Type 2 diabetes mellitus with other skin complications; E11.621 Type 2 diabetes mellitus with foot ulcer; L97.529 Non-pressure chronic ulcer of other part of left foot with unspecified severity; Z98.890 Other specified postprocedural states; Z79.01 Long term (current) use of anticoagulants; Z95.5 Presence of coronary angioplasty implant and graft; Z79.899 Other long term (current) drug therapy; Z79.82 Long term (current) use of aspirin; Z68.29 Body mass index [BMI] 29.0-29.9, adult
CPT/HCPCS: 36415; 36416; 36568; 80048; 80053; 83036; 83605; 83735; 85025; 86140; 94760; 96374; 97139; A9579; J1335; J1815; J2185; J3490

== ENCOUNTER 2023-01-28 08:05 | Outpatient (CLI) | payer OTHER ==
[2023-01-28] MEDS ORDERED: Iopamidol 370 76% 150 ML VIAL FS ONE (09:24)
== END 2023-01-28 08:06 | disposition home or self-care (01) ==
LOC: CSHWCC 08:05
PROVIDERS: ATTEND Physician Assistant
DX: E11.621 Type 2 diabetes mellitus with foot ulcer (principal); L97.529 Non-pressure chronic ulcer of other part of left foot with unspecified severity; M86.272 Subacute osteomyelitis, left ankle and foot; I25.10 Atherosclerotic heart disease of native coronary artery without angina pectoris
CPT/HCPCS: 75635; 99213; G0463

== ENCOUNTER 2023-02-01 08:52 | Outpatient (CLI) | payer OTHER | END 2023-02-01 08:53 | disposition home or self-care (01) | LOC: CSHWCC 08:52 | PROVIDERS: ATTEND Physician Assistant | DX: E11.621 Type 2 diabetes mellitus with foot ulcer (principal); M86.272 Subacute osteomyelitis, left ankle and foot; I25.10 Atherosclerotic heart disease of native coronary artery without angina pectoris; L97.509 Non-pressure chronic ulcer of other part of unspecified foot with unspecified severity | CPT/HCPCS: 97602 ==

== ENCOUNTER 2023-02-04 08:49 | Day surgery (SDC) | payer OTHER ==
[2023-02-03 09:27] VITALS: BMI 31.2
[2023-02-04] MEDS ORDERED: PROPOFOL 40 ML ONE (10:14)
[2023-02-04] MEDS ORDERED: Lidocaine 2% MPF 10 ML AMP (For Epidural Use) ONE (10:14)
[2023-02-04] MEDS ORDERED: PHENYLEPHRINE-NS 100 MCG/ML 10 ML SYRINGE ONE (11:13)
== END 2023-02-04 11:55 | disposition home or self-care (01) ==
LOC: CSHSDC 08:49
PROVIDERS: ATTEND Internal Medicine Gastroenterology
PROC: 0DBK8ZZ Excision of Ascending Colon, Via Natural or Artificial Opening Endoscopic (ICD-10-PCS; principal; 2023-02-04)
DX: Z12.11 Encounter for screening for malignant neoplasm of colon (principal); D12.2 Benign neoplasm of ascending colon; K64.8 Other hemorrhoids; K57.30 Diverticulosis of large intestine without perforation or abscess without bleeding; F17.200 Nicotine dependence, unspecified, uncomplicated; I48.91 Unspecified atrial fibrillation; I11.0 Hypertensive heart disease with heart failure; I50.9 Heart failure, unspecified; J44.9 Chronic obstructive pulmonary disease, unspecified; I73.9 Peripheral vascular disease, unspecified; I25.10 Atherosclerotic heart disease of native coronary artery without angina pectoris; E11.9 Type 2 diabetes mellitus without complications; Z86.711 Personal history of pulmonary embolism; Z86.010 Personal history of colon polyps
CPT/HCPCS: 88305; J1642; J2704

== ENCOUNTER 2023-02-23 12:39 | Outpatient (CLI) | payer OTHER | END 2023-02-23 12:40 | disposition home or self-care (01) | LOC: CSHWCC 12:39 | PROVIDERS: ATTEND Preventive Medicine Undersea and Hyperbaric Medicine | DX: E11.621 Type 2 diabetes mellitus with foot ulcer (principal); M86.272 Subacute osteomyelitis, left ankle and foot; I25.10 Atherosclerotic heart disease of native coronary artery without angina pectoris; L97.509 Non-pressure chronic ulcer of other part of unspecified foot with unspecified severity | CPT/HCPCS: 11042; 97597 ==

== ENCOUNTER 2023-03-01 10:20 | Outpatient (CLI) | payer OTHER ==
[2023-03-01 12:33] LABS: Hematocrit 38.4 % (38.8-50.0); Mean Corpuscular HGB CONC 33.9 g/dL (32.0-36.0); Mean Corpuscular Hemoglobin 30.8 pg (27.0-33.0); Mean Platelet Volume 10.4 fl (7.4-10.4); Platelet Count 440 10x3/uL (150-450); RBC Distribution Width 13.3 % (11.5-14.5); Red Blood Cell (RBC) Count 4.22 10x6/uL (4.32-5.72); White Blood Cell (WBC) Count 9.6 10x3/uL (3.5-10.5)
[2023-03-01 12:54] LABS: Anion Gap 17 mmol/L (10-20); BUN (Urea Nitrogen) 15 mg/dL (8.4-25.7); Calc. Creatinine Clearance 0 mL/min (70-130); Calcium 9.7 mg/dL (7.8-10.44); Carbon Dioxide 25 mmol/L (23-31); Chloride 95 mmol/L (98-107); Estimated GFR 84; Glucose 376 mg/dL (80-115); Sodium 132 mmol/L (136-145)
== END 2023-03-01 10:21 | disposition home or self-care (01) ==
LOC: CSHLAB 10:20
PROVIDERS: ATTEND Surgery
DX: Z01.818 Encounter for other preprocedural examination (principal); C32.1 Malignant neoplasm of supraglottis
CPT/HCPCS: 80048; 85027; 93005; 93010

== ENCOUNTER 2023-03-03 11:41 | Outpatient (CLI) | payer OTHER | END 2023-03-03 11:42 | disposition home or self-care (01) | LOC: CSHWCC 11:41 | PROVIDERS: ATTEND Physician Assistant | DX: E11.621 Type 2 diabetes mellitus with foot ulcer (principal); L97.529 Non-pressure chronic ulcer of other part of left foot with unspecified severity; M86.272 Subacute osteomyelitis, left ankle and foot; I25.10 Atherosclerotic heart disease of native coronary artery without angina pectoris | CPT/HCPCS: 97597; 99213; G0463 ==

== ENCOUNTER 2023-03-04 06:13 | Day surgery (SDC) | payer OTHER ==
[2023-03-01 11:10] VITALS: BMI 29.9
[2023-03-04] MEDS ORDERED: EPINEPHrine 1 MG/ML VIAL ONE (08:07)
[2023-03-04] MEDS ORDERED: Bupivacaine PF 0.5% 30 ML VIAL ONE (08:07)
[2023-03-04] MEDS ORDERED: PROPOFOL 20 ML ONE (08:08)
[2023-03-04] MEDS ORDERED: Lidocaine 1% PF 5 ML VIAL ONE (08:08)
[2023-03-04] MEDS ORDERED: fentaNYL 50 mcg/mL 1 mL Vial ONE (08:08)
[2023-03-04] MEDS ORDERED: CEFAZOLIN 2 GM VIAL ONE (08:30)
[2023-03-04] MEDS ORDERED: ePHEDrine Sulfate 50 MG/10 ML VIAL ONE (08:54)
[2023-03-04] MEDS ORDERED: Ondansetron PF 4 MG/2 ML Vial ONE (09:09)
[2023-03-04] MEDS ORDERED: Acetaminophen 325 MG TAB PO PRN (09:30)
[2023-03-04] MEDS ORDERED: HYDROcodone/Acetaminophen 5/325 mg Tablet PO PRN (09:30)
== END 2023-03-04 10:25 | disposition home or self-care (01) ==
LOC: CSHSDC 06:13
PROVIDERS: ATTEND Surgery
PROC: 0JH63WZ Insertion of Totally Implantable Vascular Access Device into Chest Subcutaneous Tissue and Fascia, Percutaneous Approach (ICD-10-PCS; principal; 2023-03-04)
DX: C32.1 Malignant neoplasm of supraglottis (principal); I48.91 Unspecified atrial fibrillation; E11.9 Type 2 diabetes mellitus without complications; E78.00 Pure hypercholesterolemia, unspecified; I10 Essential (primary) hypertension; J45.909 Unspecified asthma, uncomplicated; I25.10 Atherosclerotic heart disease of native coronary artery without angina pectoris; E66.9 Obesity, unspecified; Z79.01 Long term (current) use of anticoagulants; Z79.899 Other long term (current) drug therapy; Z98.890 Other specified postprocedural states; Z68.30 Body mass index [BMI] 30.0-30.9, adult
CPT/HCPCS: 36416; 71045; C1788; J0171; J1642; J2405; J2704; J3010; S0020

== ENCOUNTER 2023-03-15 10:58 | Inpatient (IN) | payer OTHER ==
[~2023-03-15 10:58] MED LIST: Iopamidol 300 61% 100 ML VIAL FS ONE
[2023-03-15 11:42] LABS: #Basophils 0.1 10x3/uL (0.0-0.2); #Eosinphils 0.1 10x3/uL (0.0-0.5); #Monocytes 1.5 10x3/uL (0.0-1.1); #Neutrophils 14.9 10x3/uL (1.5-8.4); %Basophils 0.3 % (0.0-2.0); %Eosinophils 0.3 % (0.0-6.0); %Lymphocytes 9.4 % (18.0-47.0); %Monocytes 7.9 % (0.0-10.0); %Neutrophils 81.2 % (40.0-75.0); Hematocrit 34.6 % (38.8-50.0); Hemoglobin 11.4 g/dL (13.5-17.5); Mean Corpuscular HGB CONC 32.9 g/dL (32.0-36.0); Mean Corpuscular Hemoglobin 29.6 pg (27.0-33.0); Mean Corpuscular Volume 89.9 fl (81.2-95.1); Mean Platelet Volume 9.9 fl (7.4-10.4); Platelet Count 476 10x3/uL (150-450); RBC Distribution Width 14.4 % (11.5-14.5); Red Blood Cell (RBC) Count 3.85 10x6/uL (4.32-5.72); White Blood Cell (WBC) Count 18.3 10x3/uL (3.5-10.5)
[2023-03-15 11:56] LABS: ALT (SGPT) 28 U/L (8-55); AST (SGOT) 28 U/L (5-34); Albumin 3.6 g/dL (3.4-4.8); Alkaline Phosphatase 125 U/L (40-110); Anion Gap 20 mmol/L (10-20); BUN (Urea Nitrogen) 17 mg/dL (8.4-25.7); Bilirubin, Total 0.8 mg/dL (0.2-1.2); Calc. Creatinine Clearance 0 mL/min (70-130); Calcium 9.9 mg/dL (7.8-10.44); Carbon Dioxide 22 mmol/L (23-31); Chloride 95 mmol/L (98-107); Estimated GFR 91; Globulin 5.3 g/dL (2.4-3.5); Glucose 208 mg/dL (80-115); Potassium 3.7 mmol/L (3.5-5.1); Protein, Total 8.9 g/dL (5.8-8.1); Sodium 133 mmol/L (136-145)
[2023-03-15] MEDS ORDERED: Acetaminophen 325 MG TAB ONE (12:13)
[2023-03-15] MEDS ORDERED: Cefepime 2 GM VIAL ONE (12:14)
[2023-03-15] MEDS ORDERED: Vancomycin 1.5 GRAM/300 ML BAG 1.5 GM in Premix 1 BAG IVPB SCH (12:30)
[2023-03-15] MEDS ORDERED: Morphine 4 MG/ML VIAL ONE (13:08)
[2023-03-15] MEDS ORDERED: Insulin Regular 300 UNITS/3 ML VIAL SC PRN (15:28)
[2023-03-15] MEDS ORDERED: Bisacodyl 10 MG SUPP PR PRN (15:28)
[2023-03-15] MEDS ORDERED: Acetaminophen 325 MG TAB PO PRN (15:28)
[2023-03-15] MEDS ORDERED: Bisacodyl 5 MG TAB PO PRN (15:28)
[2023-03-15] MEDS ORDERED: Ondansetron PF 4 MG/2 ML Vial IVP PRN (15:28)
[2023-03-15] MEDS ORDERED: Glucagon 1 MG/ML KIT IM PRN (15:28)
[2023-03-15] MEDS ORDERED: Dextrose 5% in Water 1,000 ML IV PRN (15:28)
[2023-03-15] MEDS ORDERED: Dextrose 50% Abboject 50 ML SYRINGE SLOW IVP PRN (15:28)
[2023-03-15] MEDS ORDERED: Senokot S 8.6-50 MG TAB PO PRN (15:28)
[2023-03-15] MEDS ORDERED: Electrolyte Replacement Protocol 1 EACH FS SCH (15:45)
[2023-03-15 17:08] VITALS: BMI 29.9
[2023-03-15] MEDS ORDERED: Morphine 4 MG/ML VIAL SLOW IVP SCH (17:30)
[2023-03-15] MEDS ORDERED: Meropenem 1 GM in Sodium Chloride 0.9% 100 ML IVPB SCH (18:00)
[2023-03-15 19:49] LABS: Hemoglobin A1c 8.7 % (4.0-6.0)
[2023-03-15 20:00] LABS: Troponin I Less than 0.010 ng/mL (< 0.028)
[2023-03-15] MEDS ORDERED: Amiodarone 200 MG TAB PO SCH (21:00)
[2023-03-15 21:52] LABS: Troponin I Less than 0.010 ng/mL (< 0.028)
[2023-03-15] MEDS: Metoprolol Tartrate 50 MG TAB PO SCH (21:53)
[2023-03-15] MEDS: Atorvastatin Calcium 40 MG TAB PO SCH (21:53)
[2023-03-15] MEDS: Enoxaparin 120 MG/0.8 ML SYRINGE SC SCH (21:54)
[2023-03-15] MEDS: Morphine 4 MG/ML VIAL SLOW IVP PRN (21:55)
[2023-03-15] MEDS: Vancomycin 1.5 GRAM/300 ML BAG 1.5 GM in Premix 1 BAG IVPB SCH (22:03)
[2023-03-16] MEDS: Morphine 4 MG/ML VIAL SLOW IVP PRN ×5 (02:02→20:59)
[2023-03-16] MEDS: Meropenem 1 GM in Sodium Chloride 0.9% 100 ML IVPB SCH ×3 (02:03→20:59)
[2023-03-16 04:23] LABS: #Basophils 0.1 10x3/uL (0.0-0.2); #Eosinphils 0.1 10x3/uL (0.0-0.5); #Monocytes 1.2 10x3/uL (0.0-1.1); #Neutrophils 12.4 10x3/uL (1.5-8.4); %Basophils 0.4 % (0.0-2.0); %Eosinophils 0.6 % (0.0-6.0); %Lymphocytes 8.3 % (18.0-47.0); %Monocytes 7.6 % (0.0-10.0); %Neutrophils 82.2 % (40.0-75.0); Hematocrit 29.9 % (38.8-50.0); Hemoglobin 9.8 g/dL (13.5-17.5); Mean Corpuscular HGB CONC 32.8 g/dL (32.0-36.0); Mean Corpuscular Hemoglobin 29.9 pg (27.0-33.0); Mean Corpuscular Volume 91.2 fl (81.2-95.1); Mean Platelet Volume 9.9 fl (7.4-10.4); Platelet Count 378 10x3/uL (150-450); RBC Distribution Width 14.3 % (11.5-14.5); Red Blood Cell (RBC) Count 3.28 10x6/uL (4.32-5.72); White Blood Cell (WBC) Count 15.1 10x3/uL (3.5-10.5)
[2023-03-16 04:38] LABS: ALT (SGPT) 23 U/L (8-55); AST (SGOT) 25 U/L (5-34); Alkaline Phosphatase 102 U/L (40-110); Anion Gap 18 mmol/L (10-20); BUN (Urea Nitrogen) 13 mg/dL (8.4-25.7); Bilirubin, Direct 0.4 mg/dL (0.1-0.3); Bilirubin, Total 0.6 mg/dL (0.2-1.2); Calc. Creatinine Clearance 147 mL/min (70-130); Carbon Dioxide 18 mmol/L (23-31); Chloride 102 mmol/L (98-107); Estimated GFR 100; Glucose 143 mg/dL (80-115); Magnesium 1.8 mg/dL (1.6-2.6); Protein, Total 7.3 g/dL (5.8-8.1); Sodium 134 mmol/L (136-145)
[2023-03-16 04:43] LABS: Cardiac Risk 6.5 (Less than 4.5); Cholesterol 85 mg/dl (< 200 Desired); HDL Cholesterol 13 mg/dL (>60 Neg Risk); LDL Cholesterol, Calculated 44 mg/dL; Triglycerides 140 mg/dL (Less than 150)
[2023-03-16 05:32] LABS: INR-International Normal Ratio 1.2; PTT 33.9 sec (22.0-33.0); Prothrombin Time 13.1 sec (9.5-12.1)
[2023-03-16] MEDS ORDERED: Magnesium 2 GM/50 ML(in water) 2 GM in Premix 1 BAG IVPB SCH (09:00)
[2023-03-16] MEDS: Vancomycin 1.5 GRAM/300 ML BAG 1.5 GM in Premix 1 BAG IVPB SCH ×2 (09:35→23:42)
[2023-03-16] MEDS: Metoprolol Tartrate 50 MG TAB PO SCH ×2 (09:35→20:58)
[2023-03-16] MEDS: Enoxaparin 120 MG/0.8 ML SYRINGE SC SCH ×2 (09:35→21:00)
[2023-03-16] MEDS: Clopidogrel Bisulfate 75 MG TAB PO SCH (09:36)
[2023-03-16] MEDS ORDERED: Lactated Ringer's 1,000 ML IV SCH (10:15)
[2023-03-16] MEDS: Atorvastatin Calcium 40 MG TAB PO SCH (20:58)
[2023-03-16 22:04] LABS: Vancomycin, Trough 14.4 ug/mL
[2023-03-17] MEDS: Meropenem 1 GM in Sodium Chloride 0.9% 100 ML IVPB SCH ×3 (01:20→14:00)
[2023-03-17 04:46] LABS: #Eosinphils 0.1 10x3/uL (0.0-0.5); #Neutrophils 9.2 10x3/uL (1.5-8.4); %Basophils 0.3 % (0.0-2.0); %Eosinophils 0.9 % (0.0-6.0); %Lymphocytes 9.4 % (18.0-47.0); %Monocytes 8.5 % (0.0-10.0); %Neutrophils 79.9 % (40.0-75.0); Hematocrit 28.6 % (38.8-50.0); Hemoglobin 9.4 g/dL (13.5-17.5); Mean Corpuscular HGB CONC 32.9 g/dL (32.0-36.0); Mean Corpuscular Hemoglobin 29.7 pg (27.0-33.0); Mean Corpuscular Volume 90.2 fl (81.2-95.1); Mean Platelet Volume 10.3 fl (7.4-10.4); Platelet Count 383 10x3/uL (150-450); RBC Distribution Width 14.3 % (11.5-14.5); Red Blood Cell (RBC) Count 3.17 10x6/uL (4.32-5.72); White Blood Cell (WBC) Count 11.6 10x3/uL (3.5-10.5)
[2023-03-17] MEDS: Morphine 4 MG/ML VIAL SLOW IVP PRN ×4 (05:45→19:51)
[2023-03-17 06:16] LABS: Anion Gap 18 mmol/L (10-20); BUN (Urea Nitrogen) 12 mg/dL (8.4-25.7); Calc. Creatinine Clearance 181 mL/min (70-130); Calcium 8.6 mg/dL (7.8-10.44); Carbon Dioxide 17 mmol/L (23-31); Chloride 100 mmol/L (98-107); Estimated GFR 107; Glucose 111 mg/dL (80-115); Magnesium 1.8 mg/dL (1.6-2.6); Potassium 3.4 mmol/L (3.5-5.1); Sodium 132 mmol/L (136-145)
[2023-03-17] MEDS ORDERED: Potassium Chloride 20 MEQ TAB PO SCH (09:00)
[2023-03-17] MEDS ORDERED: Magnesium 2 GM/50 ML(in water) 2 GM in Premix 1 BAG IVPB SCH (09:00)
[2023-03-17] MEDS: Enoxaparin 120 MG/0.8 ML SYRINGE SC SCH ×2 (09:42→22:28)
[2023-03-17] MEDS: Metoprolol Tartrate 50 MG TAB PO SCH ×2 (09:53→22:27)
[2023-03-17] MEDS: Clopidogrel Bisulfate 75 MG TAB PO SCH (09:54)
[2023-03-17] MEDS: Vancomycin 1.5 GRAM/300 ML BAG 1.5 GM in Premix 1 BAG IVPB SCH ×2 (11:35→23:19)
[2023-03-17] MEDS: HYDROcodone/Acetaminophen 5/325 mg Tablet PO PRN ×3 (11:36→23:15)
[2023-03-17 14:48] LABS: Potassium 3.6 mmol/L (3.5-5.1)
[2023-03-17] MEDS: Atorvastatin Calcium 40 MG TAB PO SCH (22:28)
[2023-03-17] MEDS: Famotidine 20 MG TAB PO SCH (22:28)
[2023-03-17] MEDS: Meropenem 2 GM, Admixture Fee 1 EACH in Sodium Chloride 0.9% 100 ML IVPB SCH (23:18)
[2023-03-18] MEDS: Morphine 4 MG/ML VIAL SLOW IVP PRN ×5 (01:18→21:39)
[2023-03-18] MEDS: HYDROcodone/Acetaminophen 5/325 mg Tablet PO PRN ×4 (03:37→20:27)
[2023-03-18 04:40] LABS: #Eosinphils 0.1 10x3/uL (0.0-0.5); #Monocytes 0.9 10x3/uL (0.0-1.1); #Neutrophils 8.1 10x3/uL (1.5-8.4); %Basophils 0.3 % (0.0-2.0); %Eosinophils 0.7 % (0.0-6.0); %Lymphocytes 11.6 % (18.0-47.0); %Monocytes 8.4 % (0.0-10.0); Hematocrit 28.4 % (38.8-50.0); Hemoglobin 9.4 g/dL (13.5-17.5); Mean Corpuscular HGB CONC 33.1 g/dL (32.0-36.0); Mean Corpuscular Hemoglobin 29.7 pg (27.0-33.0); Mean Corpuscular Volume 89.6 fl (81.2-95.1); Mean Platelet Volume 10.1 fl (7.4-10.4); Platelet Count 380 10x3/uL (150-450); RBC Distribution Width 14.2 % (11.5-14.5); Red Blood Cell (RBC) Count 3.17 10x6/uL (4.32-5.72); White Blood Cell (WBC) Count 10.4 10x3/uL (3.5-10.5)
[2023-03-18 04:56] LABS: Phosphorus 2.5 mg/dL (2.3-4.7)
[2023-03-18 04:58] LABS: Anion Gap 15 mmol/L (10-20); BUN (Urea Nitrogen) 11 mg/dL (8.4-25.7); Calc. Creatinine Clearance 184 mL/min (70-130); Calcium 8.3 mg/dL (7.8-10.44); Carbon Dioxide 22 mmol/L (23-31); Chloride 99 mmol/L (98-107); Estimated GFR 107; Glucose 142 mg/dL (80-115); Magnesium 1.8 mg/dL (1.6-2.6); Potassium 3.7 mmol/L (3.5-5.1); Sodium 132 mmol/L (136-145)
[2023-03-18] MEDS: Meropenem 2 GM, Admixture Fee 1 EACH in Sodium Chloride 0.9% 100 ML IVPB SCH ×3 (05:42→22:03)
[2023-03-18] MEDS ORDERED: Magnesium 2 GM/50 ML(in water) 2 GM in Premix 1 BAG IVPB SCH (08:00)
[2023-03-18] MEDS: Famotidine 20 MG TAB PO SCH ×2 (08:43→21:41)
[2023-03-18] MEDS: Clopidogrel Bisulfate 75 MG TAB PO SCH (08:43)
[2023-03-18] MEDS: Enoxaparin 120 MG/0.8 ML SYRINGE SC SCH ×2 (08:44→21:41)
[2023-03-18] MEDS: Metoprolol Tartrate 50 MG TAB PO SCH ×2 (09:28→21:41)
[2023-03-18 10:42] LABS: Vancomycin, Trough 16.8 ug/mL
[2023-03-18] MEDS: Vancomycin 1.5 GRAM/300 ML BAG 1.5 GM in Premix 1 BAG IVPB SCH ×2 (11:15→22:05)
[2023-03-18] MEDS: Atorvastatin Calcium 40 MG TAB PO SCH (21:40)
[2023-03-19] MEDS: Morphine 4 MG/ML VIAL SLOW IVP PRN ×4 (02:47→20:14)
[2023-03-19 04:54] LABS: #Eosinphils 0.1 10x3/uL (0.0-0.5); #Monocytes 0.8 10x3/uL (0.0-1.1); #Neutrophils 7.4 10x3/uL (1.5-8.4); %Basophils 0.3 % (0.0-2.0); %Eosinophils 0.6 % (0.0-6.0); %Lymphocytes 10.2 % (18.0-47.0); %Monocytes 8.4 % (0.0-10.0); %Neutrophils 79.3 % (40.0-75.0); Hematocrit 29.8 % (38.8-50.0); Mean Corpuscular HGB CONC 33.6 g/dL (32.0-36.0); Mean Corpuscular Hemoglobin 29.7 pg (27.0-33.0); Mean Corpuscular Volume 88.4 fl (81.2-95.1); Mean Platelet Volume 9.8 fl (7.4-10.4); Platelet Count 384 10x3/uL (150-450); RBC Distribution Width 14.2 % (11.5-14.5); Red Blood Cell (RBC) Count 3.37 10x6/uL (4.32-5.72); White Blood Cell (WBC) Count 9.4 10x3/uL (3.5-10.5)
[2023-03-19 04:57] LABS: Anion Gap 16 mmol/L (10-20); BUN (Urea Nitrogen) 8 mg/dL (8.4-25.7); Calc. Creatinine Clearance 206 mL/min (70-130); Calcium 8.3 mg/dL (7.8-10.44); Carbon Dioxide 21 mmol/L (23-31); Chloride 98 mmol/L (98-107); Estimated GFR 111; Glucose 107 mg/dL (80-115); Magnesium 1.7 mg/dL (1.6-2.6); Sodium 131 mmol/L (136-145)
[2023-03-19] MEDS: Meropenem 2 GM, Admixture Fee 1 EACH in Sodium Chloride 0.9% 100 ML IVPB SCH ×3 (06:41→21:57)
[2023-03-19] MEDS ORDERED: Magnesium 2 GM/50 ML(in water) 2 GM in Premix 1 BAG IVPB SCH (08:00)
[2023-03-19] MEDS: Enoxaparin 120 MG/0.8 ML SYRINGE SC SCH ×2 (09:52→20:17)
[2023-03-19] MEDS: Famotidine 20 MG TAB PO SCH ×2 (09:59→20:17)
[2023-03-19] MEDS: Clopidogrel Bisulfate 75 MG TAB PO SCH (09:59)
[2023-03-19] MEDS: Metoprolol Tartrate 50 MG TAB PO SCH ×2 (09:59→20:17)
[2023-03-19] MEDS: Vancomycin 1.5 GRAM/300 ML BAG 1.5 GM in Premix 1 BAG IVPB SCH ×2 (12:50→21:58)
[2023-03-19] MEDS: Atorvastatin Calcium 40 MG TAB PO SCH (20:17)
[2023-03-19 22:40] LABS: Vancomycin, Trough 18.2 ug/mL
[2023-03-20] MEDS: Morphine 4 MG/ML VIAL SLOW IVP PRN ×4 (00:16→22:01)
[2023-03-20 05:29] LABS: #Basophils 0.1 10x3/uL (0.0-0.2); #Eosinphils 0.1 10x3/uL (0.0-0.5); #Monocytes 0.7 10x3/uL (0.0-1.1); #Neutrophils 6.5 10x3/uL (1.5-8.4); %Basophils 0.6 % (0.0-2.0); %Monocytes 8.4 % (0.0-10.0); %Neutrophils 74.6 % (40.0-75.0); Hematocrit 33.5 % (38.8-50.0); Hemoglobin 11.2 g/dL (13.5-17.5); Mean Corpuscular HGB CONC 33.4 g/dL (32.0-36.0); Mean Corpuscular Hemoglobin 29.8 pg (27.0-33.0); Mean Corpuscular Volume 89.1 fl (81.2-95.1); Mean Platelet Volume 9.8 fl (7.4-10.4); Platelet Count 377 10x3/uL (150-450); RBC Distribution Width 14.2 % (11.5-14.5); Red Blood Cell (RBC) Count 3.76 10x6/uL (4.32-5.72); White Blood Cell (WBC) Count 8.7 10x3/uL (3.5-10.5)
[2023-03-20 05:35] LABS: Anion Gap 17 mmol/L (10-20); BUN (Urea Nitrogen) 8 mg/dL (8.4-25.7); Calc. Creatinine Clearance 213 mL/min (70-130); Calcium 8.6 mg/dL (7.8-10.44); Carbon Dioxide 21 mmol/L (23-31); Chloride 98 mmol/L (98-107); Estimated GFR 112; Glucose 115 mg/dL (80-115); Magnesium 1.8 mg/dL (1.6-2.6); Potassium 4.1 mmol/L (3.5-5.1); Sodium 132 mmol/L (136-145)
[2023-03-20] MEDS: Meropenem 2 GM, Admixture Fee 1 EACH in Sodium Chloride 0.9% 100 ML IVPB SCH ×3 (06:23→23:09)
[2023-03-20] MEDS: Enoxaparin 120 MG/0.8 ML SYRINGE SC SCH ×2 (07:51→22:00)
[2023-03-20] MEDS ORDERED: Magnesium 2 GM/50 ML(in water) 2 GM in Premix 1 BAG IVPB SCH (08:00)
[2023-03-20] MEDS ORDERED: Bupivacaine PF 0.5% 30 ML VIAL ONE (08:11)
[2023-03-20] MEDS: Famotidine 20 MG TAB PO SCH ×2 (08:20→22:00)
[2023-03-20] MEDS: Metoprolol Tartrate 50 MG TAB PO SCH ×2 (08:20→22:00)
[2023-03-20] MEDS: Clopidogrel Bisulfate 75 MG TAB PO SCH (08:21)
[2023-03-20] MEDS ORDERED: fentaNYL 50 mcg/mL 1 mL Vial ONE (09:00)
[2023-03-20] MEDS ORDERED: Midazolam HCl 2 mg/2 ml Vial ONE (09:00)
[2023-03-20] MEDS ORDERED: Iopamidol 300 61% 100 ML VIAL FS ONE (09:52)
[2023-03-20] MEDS ORDERED: HYDROmorphone 0.5 MG/0.5 ML SYRINGE SLOW IVP SCH (11:30)
[2023-03-20] MEDS: Vancomycin 1.5 GRAM/300 ML BAG 1.5 GM in Premix 1 BAG IVPB SCH ×2 (12:26→23:54)
[2023-03-20] MEDS: Lidocaine 4% Patch TD SCH (12:27)
[2023-03-20] MEDS: Atorvastatin Calcium 40 MG TAB PO SCH (22:00)
[2023-03-21] MEDS: Transdermal Patch Removal TOP SCH (01:12)
[2023-03-21] MEDS: Morphine 4 MG/ML VIAL SLOW IVP PRN ×6 (02:08→22:26)
[2023-03-21 05:05] LABS: #Eosinphils 0.1 10x3/uL (0.0-0.5); #Monocytes 1.1 10x3/uL (0.0-1.1); #Neutrophils 8.8 10x3/uL (1.5-8.4); %Basophils 0.3 % (0.0-2.0); %Eosinophils 0.6 % (0.0-6.0); %Lymphocytes 13.5 % (18.0-47.0); %Monocytes 9.6 % (0.0-10.0); %Neutrophils 74.1 % (40.0-75.0); Hematocrit 30.9 % (38.8-50.0); Mean Corpuscular HGB CONC 32.4 g/dL (32.0-36.0); Mean Corpuscular Hemoglobin 28.9 pg (27.0-33.0); Mean Corpuscular Volume 89.3 fl (81.2-95.1); Mean Platelet Volume 9.6 fl (7.4-10.4); Platelet Count 390 10x3/uL (150-450); RBC Distribution Width 14.4 % (11.5-14.5); Red Blood Cell (RBC) Count 3.46 10x6/uL (4.32-5.72); White Blood Cell (WBC) Count 11.8 10x3/uL (3.5-10.5)
[2023-03-21 05:08] LABS: Anion Gap 15 mmol/L (10-20); BUN (Urea Nitrogen) 8 mg/dL (8.4-25.7); Calc. Creatinine Clearance 187 mL/min (70-130); Calcium 8.4 mg/dL (7.8-10.44); Carbon Dioxide 24 mmol/L (23-31); Chloride 98 mmol/L (98-107); Estimated GFR 108; Glucose 131 mg/dL (80-115); Magnesium 1.9 mg/dL (1.6-2.6); Potassium 4.4 mmol/L (3.5-5.1); Sodium 133 mmol/L (136-145)
[2023-03-21] MEDS: Meropenem 2 GM, Admixture Fee 1 EACH in Sodium Chloride 0.9% 100 ML IVPB SCH ×3 (05:59→23:11)
[2023-03-21] MEDS ORDERED: Magnesium 2 GM/50 ML(in water) 2 GM in Premix 1 BAG IVPB SCH (08:00)
[2023-03-21] MEDS: Famotidine 20 MG TAB PO SCH ×2 (10:39→22:26)
[2023-03-21] MEDS: Enoxaparin 120 MG/0.8 ML SYRINGE SC SCH ×2 (10:39→22:25)
[2023-03-21] MEDS: Clopidogrel Bisulfate 75 MG TAB PO SCH (10:39)
[2023-03-21] MEDS: Lidocaine 4% Patch TD SCH (10:39)
[2023-03-21] MEDS: Metoprolol Tartrate 50 MG TAB PO SCH ×2 (10:39→22:25)
[2023-03-21] MEDS: Vancomycin 1.5 GRAM/300 ML BAG 1.5 GM in Premix 1 BAG IVPB SCH ×2 (10:45→23:08)
[2023-03-21 11:00] LABS: Vancomycin, Trough 16.2 ug/mL
[2023-03-21] MEDS: Atorvastatin Calcium 40 MG TAB PO SCH (22:25)
[2023-03-22] MEDS: Transdermal Patch Removal TOP SCH (01:47)
[2023-03-22] MEDS: Morphine 4 MG/ML VIAL SLOW IVP PRN ×5 (02:34→20:40)
[2023-03-22 05:06] LABS: #Eosinphils 0.1 10x3/uL (0.0-0.5); #Monocytes 0.8 10x3/uL (0.0-1.1); #Neutrophils 6.5 10x3/uL (1.5-8.4); %Basophils 0.4 % (0.0-2.0); %Lymphocytes 15.6 % (18.0-47.0); %Monocytes 8.9 % (0.0-10.0); %Neutrophils 72.4 % (40.0-75.0); Hematocrit 31.7 % (38.8-50.0); Hemoglobin 10.2 g/dL (13.5-17.5); Mean Corpuscular HGB CONC 32.2 g/dL (32.0-36.0); Mean Corpuscular Hemoglobin 28.8 pg (27.0-33.0); Mean Corpuscular Volume 89.5 fl (81.2-95.1); Mean Platelet Volume 9.9 fl (7.4-10.4); Platelet Count 404 10x3/uL (150-450); RBC Distribution Width 14.4 % (11.5-14.5); Red Blood Cell (RBC) Count 3.54 10x6/uL (4.32-5.72)
[2023-03-22 05:11] LABS: Anion Gap 13 mmol/L (10-20); BUN (Urea Nitrogen) 8 mg/dL (8.4-25.7); Calc. Creatinine Clearance 196 mL/min (70-130); Calcium 8.5 mg/dL (7.8-10.44); Carbon Dioxide 26 mmol/L (23-31); Chloride 99 mmol/L (98-107); Estimated GFR 109; Glucose 136 mg/dL (80-115); Magnesium 1.9 mg/dL (1.6-2.6); Potassium 4.1 mmol/L (3.5-5.1); Sodium 134 mmol/L (136-145)
[2023-03-22] MEDS: Meropenem 2 GM, Admixture Fee 1 EACH in Sodium Chloride 0.9% 100 ML IVPB SCH ×3 (05:50→22:42)
[2023-03-22] MEDS ORDERED: Magnesium 2 GM/50 ML(in water) 2 GM in Premix 1 BAG IVPB SCH (08:00)
[2023-03-22] MEDS: Metoprolol Tartrate 50 MG TAB PO SCH ×2 (10:03→20:40)
[2023-03-22] MEDS: Enoxaparin 120 MG/0.8 ML SYRINGE SC SCH ×2 (10:04→20:41)
[2023-03-22] MEDS: Famotidine 20 MG TAB PO SCH ×2 (10:04→20:39)
[2023-03-22] MEDS: Clopidogrel Bisulfate 75 MG TAB PO SCH (10:04)
[2023-03-22] MEDS: Vancomycin 1.5 GRAM/300 ML BAG 1.5 GM in Premix 1 BAG IVPB SCH ×2 (10:40→23:30)
[2023-03-22] MEDS: Lidocaine 4% Patch TD SCH (13:00)
[2023-03-22] MEDS: Atorvastatin Calcium 40 MG TAB PO SCH (20:39)
[2023-03-22] MEDS: Insulin Regular 300 UNITS/3 ML VIAL SC PRN (20:41)
[2023-03-23] MEDS: Transdermal Patch Removal TOP SCH (00:07)
[2023-03-23] MEDS: Morphine 4 MG/ML VIAL SLOW IVP PRN ×5 (00:35→20:30)
[2023-03-23 03:49] LABS: #Eosinphils 0.1 10x3/uL (0.0-0.5); #Monocytes 0.7 10x3/uL (0.0-1.1); #Neutrophils 5.3 10x3/uL (1.5-8.4); %Basophils 0.5 % (0.0-2.0); %Eosinophils 1.1 % (0.0-6.0); %Lymphocytes 21.7 % (18.0-47.0); %Monocytes 8.7 % (0.0-10.0); Hematocrit 31.5 % (38.8-50.0); Hemoglobin 10.4 g/dL (13.5-17.5); Mean Corpuscular Hemoglobin 29.5 pg (27.0-33.0); Mean Corpuscular Volume 89.5 fl (81.2-95.1); Mean Platelet Volume 9.8 fl (7.4-10.4); Platelet Count 424 10x3/uL (150-450); RBC Distribution Width 14.6 % (11.5-14.5); Red Blood Cell (RBC) Count 3.52 10x6/uL (4.32-5.72)
[2023-03-23 03:55] LABS: Anion Gap 13 mmol/L (10-20); BUN (Urea Nitrogen) 8 mg/dL (8.4-25.7); Calc. Creatinine Clearance 193 mL/min (70-130); Calcium 8.7 mg/dL (7.8-10.44); Carbon Dioxide 25 mmol/L (23-31); Chloride 100 mmol/L (98-107); Estimated GFR 109; Glucose 122 mg/dL (80-115); Potassium 4.3 mmol/L (3.5-5.1); Sodium 134 mmol/L (136-145)
[2023-03-23] MEDS: Meropenem 2 GM, Admixture Fee 1 EACH in Sodium Chloride 0.9% 100 ML IVPB SCH ×3 (06:24→22:51)
[2023-03-23] MEDS: Vancomycin 1.5 GRAM/300 ML BAG 1.5 GM in Premix 1 BAG IVPB SCH ×2 (09:50→23:50)
[2023-03-23] MEDS: Enoxaparin 120 MG/0.8 ML SYRINGE SC SCH ×2 (09:51→20:36)
[2023-03-23] MEDS: Famotidine 20 MG TAB PO SCH ×2 (09:51→20:35)
[2023-03-23] MEDS: Clopidogrel Bisulfate 75 MG TAB PO SCH (09:51)
[2023-03-23] MEDS: Metoprolol Tartrate 50 MG TAB PO SCH ×2 (09:52→20:35)
[2023-03-23] MEDS: Lidocaine 4% Patch TD SCH (12:10)
[2023-03-23] MEDS: Atorvastatin Calcium 40 MG TAB PO SCH (20:35)
[2023-03-23] MEDS: HYDROcodone/Acetaminophen 5/325 mg Tablet PO PRN (22:48)
[2023-03-23] MEDS: Insulin Regular 300 UNITS/3 ML VIAL SC PRN (22:50)
[2023-03-24] MEDS: Morphine 4 MG/ML VIAL SLOW IVP PRN ×6 (00:32→21:51)
[2023-03-24] MEDS: Transdermal Patch Removal TOP SCH (00:33)
[2023-03-24 04:03] LABS: #Basophils 0.1 10x3/uL (0.0-0.2); #Eosinphils 0.1 10x3/uL (0.0-0.5); #Monocytes 0.8 10x3/uL (0.0-1.1); #Neutrophils 4.2 10x3/uL (1.5-8.4); %Basophils 0.9 % (0.0-2.0); %Eosinophils 1.2 % (0.0-6.0); %Lymphocytes 23.7 % (18.0-47.0); %Monocytes 11.1 % (0.0-10.0); %Neutrophils 61.2 % (40.0-75.0); Hematocrit 31.3 % (38.8-50.0); Hemoglobin 10.1 g/dL (13.5-17.5); Mean Corpuscular HGB CONC 32.3 g/dL (32.0-36.0); Mean Corpuscular Hemoglobin 29.3 pg (27.0-33.0); Mean Corpuscular Volume 90.7 fl (81.2-95.1); Mean Platelet Volume 9.8 fl (7.4-10.4); Platelet Count 420 10x3/uL (150-450); RBC Distribution Width 14.9 % (11.5-14.5); Red Blood Cell (RBC) Count 3.45 10x6/uL (4.32-5.72); White Blood Cell (WBC) Count 6.9 10x3/uL (3.5-10.5)
[2023-03-24 04:19] LABS: Anion Gap 12 mmol/L (10-20); BUN (Urea Nitrogen) 10 mg/dL (8.4-25.7); Calc. Creatinine Clearance 187 mL/min (70-130); Calcium 8.9 mg/dL (7.8-10.44); Carbon Dioxide 25 mmol/L (23-31); Chloride 101 mmol/L (98-107); Estimated GFR 108; Glucose 121 mg/dL (80-115); Potassium 4.2 mmol/L (3.5-5.1)
[2023-03-24 04:20] LABS: Sodium 134 mmol/L (136-145)
[2023-03-24] MEDS: Meropenem 2 GM, Admixture Fee 1 EACH in Sodium Chloride 0.9% 100 ML IVPB SCH ×3 (06:28→22:20)
[2023-03-24] MEDS: Metoprolol Tartrate 50 MG TAB PO SCH ×2 (09:00→20:52)
[2023-03-24] MEDS: Clopidogrel Bisulfate 75 MG TAB PO SCH (09:00)
[2023-03-24] MEDS: Famotidine 20 MG TAB PO SCH ×2 (09:00→20:52)
[2023-03-24] MEDS: Enoxaparin 120 MG/0.8 ML SYRINGE SC SCH ×2 (09:00→20:51)
[2023-03-24] MEDS: Vancomycin 1.5 GRAM/300 ML BAG 1.5 GM in Premix 1 BAG IVPB SCH (12:13)
[2023-03-24] MEDS: Lidocaine 4% Patch TD SCH (12:13)
[2023-03-24] MEDS: Atorvastatin Calcium 40 MG TAB PO SCH (20:52)
[2023-03-24] MEDS: Insulin Regular 300 UNITS/3 ML VIAL SC PRN (21:51)
[2023-03-25] MEDS: Vancomycin 1.5 GRAM/300 ML BAG 1.5 GM in Premix 1 BAG IVPB SCH ×3 (00:25→23:45)
[2023-03-25] MEDS: Morphine 4 MG/ML VIAL SLOW IVP PRN ×6 (01:46→23:45)
[2023-03-25] MEDS: Transdermal Patch Removal TOP SCH (01:46)
[2023-03-25] MEDS: Meropenem 2 GM, Admixture Fee 1 EACH in Sodium Chloride 0.9% 100 ML IVPB SCH ×3 (06:14→22:07)
[2023-03-25] MEDS: Enoxaparin 120 MG/0.8 ML SYRINGE SC SCH ×2 (09:27→20:59)
[2023-03-25] MEDS: Metoprolol Tartrate 50 MG TAB PO SCH ×2 (09:27→21:00)
[2023-03-25] MEDS: Clopidogrel Bisulfate 75 MG TAB PO SCH (09:27)
[2023-03-25] MEDS: Famotidine 20 MG TAB PO SCH ×2 (09:27→21:00)
[2023-03-25] MEDS: Lidocaine 4% Patch TD SCH (12:03)
[2023-03-25] MEDS: Atorvastatin Calcium 40 MG TAB PO SCH (21:00)
[2023-03-26] MEDS: Transdermal Patch Removal TOP SCH (00:15)
[2023-03-26] MEDS: Morphine 4 MG/ML VIAL SLOW IVP PRN (04:22)
[2023-03-26 04:29] LABS: Anion Gap 11 mmol/L (10-20); BUN (Urea Nitrogen) 9 mg/dL (8.4-25.7); Calc. Creatinine Clearance 178 mL/min (70-130); Calcium 9.3 mg/dL (7.8-10.44); Carbon Dioxide 25 mmol/L (23-31); Chloride 103 mmol/L (98-107); Estimated GFR 106; Glucose 116 mg/dL (80-115); Sodium 135 mmol/L (136-145)
[2023-03-26 04:35] LABS: #Basophils 0.1 10x3/uL (0.0-0.2); #Eosinphils 0.1 10x3/uL (0.0-0.5); #Monocytes 0.6 10x3/uL (0.0-1.1); #Neutrophils 3.6 10x3/uL (1.5-8.4); %Basophils 0.8 % (0.0-2.0); %Eosinophils 1.3 % (0.0-6.0); %Lymphocytes 25.6 % (18.0-47.0); %Monocytes 10.4 % (0.0-10.0); %Neutrophils 60.7 % (40.0-75.0); Hematocrit 33.9 % (38.8-50.0); Mean Corpuscular HGB CONC 32.4 g/dL (32.0-36.0); Mean Corpuscular Hemoglobin 29.2 pg (27.0-33.0); Mean Corpuscular Volume 89.9 fl (81.2-95.1); Mean Platelet Volume 9.6 fl (7.4-10.4); Platelet Count 401 10x3/uL (150-450); RBC Distribution Width 15.1 % (11.5-14.5); Red Blood Cell (RBC) Count 3.77 10x6/uL (4.32-5.72)
[2023-03-26] MEDS: Meropenem 2 GM, Admixture Fee 1 EACH in Sodium Chloride 0.9% 100 ML IVPB SCH (05:31)
[2023-03-26 08:33] VITALS: TEMP 97.6
[2023-03-26] MEDS: Famotidine 20 MG TAB PO SCH (10:53)
[2023-03-26] MEDS: Clopidogrel Bisulfate 75 MG TAB PO SCH (10:53)
[2023-03-26] MEDS: Metoprolol Tartrate 50 MG TAB PO SCH (10:54)
[2023-03-26] MEDS: Vancomycin 1.5 GRAM/300 ML BAG 1.5 GM in Premix 1 BAG IVPB SCH (11:05)
[2023-03-26] MEDS: Enoxaparin 120 MG/0.8 ML SYRINGE SC SCH (11:05)
[2023-03-26] MEDS ORDERED: HYDROcodone/Acetaminophen 5/325 mg Tablet PO PRN (11:42)
[2023-03-26 11:59] VITALS: BP 118/68
[2023-03-26] MEDS: Lidocaine 4% Patch TD SCH (12:52)
== END 2023-03-26 14:22 | disposition home or self-care (01) | DRG 981 ==
LOC: CSHERS 10:58 → SUATTDRO 10:58 → CSHTELE 15:28 → OBSVTOIN 15:29
PROVIDERS: ADMIT Family Medicine; ATTEND Internal Medicine
PROC: 0Y6W0Z1 Detachment at Left 4th Toe, High, Open Approach (ICD-10-PCS; 2023-03-20)
PROC: 0YBN0ZZ Excision of Left Foot, Open Approach (ICD-10-PCS; 2023-03-20)
PROC: 02HV33Z Insertion of Infusion Device into Superior Vena Cava, Percutaneous Approach (ICD-10-PCS; principal; 2023-03-24)
DX: K94.22 Gastrostomy infection (principal); A41.9 Sepsis, unspecified organism; L03.311 Cellulitis of abdominal wall; I48.20 Chronic atrial fibrillation, unspecified; M86.672 Other chronic osteomyelitis, left ankle and foot; E87.1 Hypo-osmolality and hyponatremia; L02.211 Cutaneous abscess of abdominal wall; J44.9 Chronic obstructive pulmonary disease, unspecified; E11.621 Type 2 diabetes mellitus with foot ulcer; I10 Essential (primary) hypertension; E11.69 Type 2 diabetes mellitus with other specified complication; Z86.711 Personal history of pulmonary embolism; Z86.718 Personal history of other venous thrombosis and embolism; Z79.01 Long term (current) use of anticoagulants; Z79.899 Other long term (current) drug therapy; E78.00 Pure hypercholesterolemia, unspecified; Z98.890 Other specified postprocedural states; R91.8 Other nonspecific abnormal finding of lung field; F17.210 Nicotine dependence, cigarettes, uncomplicated; E11.51 Type 2 diabetes mellitus with diabetic peripheral angiopathy without gangrene; I25.10 Atherosclerotic heart disease of native coronary artery without angina pectoris; I25.2 Old myocardial infarction; Z82.49 Family history of ischemic heart disease and other diseases of the circulatory system; F17.200 Nicotine dependence, unspecified, uncomplicated; F10.20 Alcohol dependence, uncomplicated; E11.40 Type 2 diabetes mellitus with diabetic neuropathy, unspecified; Y84.8 Other medical procedures as the cause of abnormal reaction of the patient, or of later complication, without mention of misadventure at the time of the procedure
CPT/HCPCS: 36415; 36416; 36569; 71045; 74177; 80048; 80053; 80061; 80076; 80202; 83036; 83605; 83735; 84100; 84145; 84443; 84484; 85025; 85610; 85730; 86850; 86900; 86901; 87040; 87070; 87077; 87186; 87205; 93005; 93010; 94760; 94762; 96374; 96375; 97139; C1751; J0692; J1170; J1650; J1815; J2185; J2250; J2270; J3010; J3370; J3475; J3490; J7120; Q9967; S0020

== ENCOUNTER 2023-03-27 13:48 | Emergency (ER) | payer OTHER | END 2023-03-27 15:25 | disposition home or self-care (01) | LOC: CSHERS 13:48 | DX: K94.23 Gastrostomy malfunction (principal); E11.9 Type 2 diabetes mellitus without complications; E78.00 Pure hypercholesterolemia, unspecified; E66.9 Obesity, unspecified; I10 Essential (primary) hypertension; F17.210 Nicotine dependence, cigarettes, uncomplicated | CPT/HCPCS: 43762; 74022 ==

== ENCOUNTER 2023-08-06 10:48 | Outpatient (CLI) | payer OTHER | END 2023-08-06 10:49 | disposition home or self-care (01) | LOC: CSHWCC 10:48 | PROVIDERS: ATTEND Nurse Practitioner Family | DX: T81.31XD Disruption of external operation (surgical) wound, not elsewhere classified, subsequent encounter (principal); E11.621 Type 2 diabetes mellitus with foot ulcer; L97.512 Non-pressure chronic ulcer of other part of right foot with fat layer exposed; C32.9 Malignant neoplasm of larynx, unspecified; M06.9 Rheumatoid arthritis, unspecified | CPT/HCPCS: 97605 ==

== ENCOUNTER 2023-08-09 15:19 | Outpatient (CLI) | payer OTHER | END 2023-08-09 15:20 | disposition home or self-care (01) | LOC: CSHWCC 15:19 | PROVIDERS: ATTEND Nurse Practitioner Family | DX: T81.31XD Disruption of external operation (surgical) wound, not elsewhere classified, subsequent encounter (principal); E11.621 Type 2 diabetes mellitus with foot ulcer; C32.9 Malignant neoplasm of larynx, unspecified; L97.512 Non-pressure chronic ulcer of other part of right foot with fat layer exposed; M06.9 Rheumatoid arthritis, unspecified | CPT/HCPCS: 11042; 97605 ==

== ENCOUNTER 2023-08-20 11:17 | Outpatient (CLI) | payer OTHER | END 2023-08-20 11:18 | disposition home or self-care (01) | LOC: CSHWCC 11:17 | PROVIDERS: ATTEND Nurse Practitioner Family | DX: T81.31XD Disruption of external operation (surgical) wound, not elsewhere classified, subsequent encounter (principal); E11.621 Type 2 diabetes mellitus with foot ulcer; L97.512 Non-pressure chronic ulcer of other part of right foot with fat layer exposed; M06.9 Rheumatoid arthritis, unspecified; C32.9 Malignant neoplasm of larynx, unspecified | CPT/HCPCS: 97605 ==

== ENCOUNTER 2023-09-14 08:51 | Outpatient (CLI) | payer OTHER | END 2023-09-14 08:52 | disposition home or self-care (01) | LOC: CSHWCC 08:51 | PROVIDERS: ATTEND Nurse Practitioner Family | DX: T81.31XD Disruption of external operation (surgical) wound, not elsewhere classified, subsequent encounter (principal); E11.621 Type 2 diabetes mellitus with foot ulcer; L97.512 Non-pressure chronic ulcer of other part of right foot with fat layer exposed; C32.9 Malignant neoplasm of larynx, unspecified; M06.9 Rheumatoid arthritis, unspecified | CPT/HCPCS: 11042 ==

== ENCOUNTER 2023-09-17 08:36 | Outpatient (CLI) | payer OTHER | END 2023-09-17 08:37 | disposition home or self-care (01) | LOC: CSHWCC 08:36 | PROVIDERS: ATTEND Preventive Medicine Undersea and Hyperbaric Medicine | DX: T81.31XD Disruption of external operation (surgical) wound, not elsewhere classified, subsequent encounter (principal); E11.621 Type 2 diabetes mellitus with foot ulcer; L97.512 Non-pressure chronic ulcer of other part of right foot with fat layer exposed; C32.9 Malignant neoplasm of larynx, unspecified; M06.9 Rheumatoid arthritis, unspecified | CPT/HCPCS: 99213; G0463 ==

== ENCOUNTER 2023-09-24 08:49 | Outpatient (CLI) | payer OTHER, MEDICAID | END 2023-09-24 08:50 | disposition home or self-care (01) | LOC: CSHWCC 08:49 | PROVIDERS: ATTEND Nurse Practitioner Family | DX: T81.31XD Disruption of external operation (surgical) wound, not elsewhere classified, subsequent encounter (principal); E11.621 Type 2 diabetes mellitus with foot ulcer; L97.512 Non-pressure chronic ulcer of other part of right foot with fat layer exposed; C32.9 Malignant neoplasm of larynx, unspecified; M06.9 Rheumatoid arthritis, unspecified | CPT/HCPCS: 11042 ==

== ENCOUNTER 2023-10-01 10:34 | Outpatient (CLI) | payer OTHER | END 2023-10-01 10:35 | disposition home or self-care (01) | LOC: CSHWCC 10:34 | PROVIDERS: ATTEND Nurse Practitioner Family | DX: T81.31XD Disruption of external operation (surgical) wound, not elsewhere classified, subsequent encounter (principal); E11.621 Type 2 diabetes mellitus with foot ulcer; L97.512 Non-pressure chronic ulcer of other part of right foot with fat layer exposed; C32.9 Malignant neoplasm of larynx, unspecified; M06.9 Rheumatoid arthritis, unspecified | CPT/HCPCS: 11042 ==

== ENCOUNTER 2023-10-13 09:41 | Outpatient (CLI) | payer OTHER | END 2023-10-13 09:42 | disposition home or self-care (01) | LOC: CSHWCC 09:41 | PROVIDERS: ATTEND Nurse Practitioner Family | DX: E11.621 Type 2 diabetes mellitus with foot ulcer (principal); T81.31XD Disruption of external operation (surgical) wound, not elsewhere classified, subsequent encounter; L97.512 Non-pressure chronic ulcer of other part of right foot with fat layer exposed; C32.9 Malignant neoplasm of larynx, unspecified; M06.9 Rheumatoid arthritis, unspecified | CPT/HCPCS: 11042 ==

== ENCOUNTER 2023-10-22 09:16 | Outpatient (CLI) | payer OTHER | END 2023-10-22 09:17 | disposition home or self-care (01) | LOC: CSHWCC 09:16 | PROVIDERS: ATTEND Nurse Practitioner Family | DX: T81.31XD Disruption of external operation (surgical) wound, not elsewhere classified, subsequent encounter (principal); E11.621 Type 2 diabetes mellitus with foot ulcer; L97.512 Non-pressure chronic ulcer of other part of right foot with fat layer exposed; M06.9 Rheumatoid arthritis, unspecified; C32.9 Malignant neoplasm of larynx, unspecified | CPT/HCPCS: 11042 ==

== ENCOUNTER 2023-11-19 09:04 | Outpatient (CLI) | payer OTHER, MEDICAID | END 2023-11-19 09:05 | disposition home or self-care (01) | LOC: CSHWCC 09:04 | PROVIDERS: ATTEND Nurse Practitioner Family | DX: T81.31XD Disruption of external operation (surgical) wound, not elsewhere classified, subsequent encounter (principal); E11.621 Type 2 diabetes mellitus with foot ulcer; L97.512 Non-pressure chronic ulcer of other part of right foot with fat layer exposed; C32.9 Malignant neoplasm of larynx, unspecified; M06.9 Rheumatoid arthritis, unspecified | CPT/HCPCS: 11042 ==

== ENCOUNTER 2023-12-23 10:28 | Outpatient (CLI) | payer OTHER, MEDICAID | END 2023-12-23 10:29 | disposition home or self-care (01) | LOC: CSHWCC 10:28 | PROVIDERS: ATTEND Nurse Practitioner Family | DX: C32.9 Malignant neoplasm of larynx, unspecified (principal); M06.9 Rheumatoid arthritis, unspecified; Z86.31 Personal history of diabetic foot ulcer | CPT/HCPCS: 99212; G0463 ==